=== PATIENT | male | born 1980 | race Caucasian/White ===

== ENCOUNTER → 2022-09-04 09:39 | Outpatient (BNVA) | payer OTHER, SELFPAY | PROVIDERS: PCP Family Medicine; Visit Provider Internal Medicine | DX: M77.12 Lateral epicondylitis, left elbow (principal) | CPT/HCPCS: 99203 ==

== ENCOUNTER → 2022-09-08 11:01 | Outpatient (BNVA) | payer OTHER, SELFPAY | PROVIDERS: PCP Family Medicine; Visit Provider Physician Assistant Medical | DX: M77.12 Lateral epicondylitis, left elbow (principal) | CPT/HCPCS: 99213 ==

== ENCOUNTER → 2022-09-18 13:10 | Outpatient (BNVA) | payer OTHER, SELFPAY | PROVIDERS: PCP Family Medicine; Visit Provider Physician Assistant Medical | DX: M77.12 Lateral epicondylitis, left elbow (principal) | CPT/HCPCS: 99213 ==

== ENCOUNTER → 2022-10-02 09:35 | Outpatient (BNVA) | payer OTHER, SELFPAY | PROVIDERS: PCP Internal Medicine; Visit Provider Physician Assistant Medical | DX: M77.12 Lateral epicondylitis, left elbow (principal) | CPT/HCPCS: 99213 ==

== ENCOUNTER 2022-10-09 09:30 | Outpatient (RCR) | payer OTHER, BC, SELFPAY ==
--- NOTE | 2022-10-09 09:58 | MHC.OT.DC ---
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 Pt demonstrates pain free strength with upper body resistive ex WNL I anticipate pt to return to full duty without difficulty. Pt to follow up with MD at the end of the week Electronically Signed By: Deborah Gonzales OT CHT CLT Reviewed/agree with student documentation: Therapist: Please Sign and return to therapist, thank you for your referral.
== END 2022-10-09 09:59 | disposition home or self-care (01) ==
LOC: HO.OT 09:30
PROVIDERS: PCP Internal Medicine; Visit Provider Physician Assistant Medical
DX: M77.12 Lateral epicondylitis, left elbow (principal)
CPT/HCPCS: 97033; 97110; 97140; 97165

== ENCOUNTER → 2022-10-13 09:57 | Outpatient (BNVA) | payer OTHER, SELFPAY | PROVIDERS: PCP Internal Medicine; Visit Provider Physician Assistant Medical | DX: M77.12 Lateral epicondylitis, left elbow (principal) | CPT/HCPCS: 99213 ==

== ENCOUNTER → 2023-07-23 13:33 | Outpatient (BNVA) | payer OTHER, SELFPAY | PROVIDERS: PCP Internal Medicine; Visit Provider Physician Assistant Medical | DX: S39.012D Strain of muscle, fascia and tendon of lower back, subsequent encounter (principal); X58.XXXD Exposure to other specified factors, subsequent encounter | CPT/HCPCS: 99202 ==

== ENCOUNTER → 2023-08-08 13:53 | Outpatient (BNVA) | payer OTHER, SELFPAY | PROVIDERS: PCP Internal Medicine; Visit Provider Physician Assistant Medical | DX: S39.012D Strain of muscle, fascia and tendon of lower back, subsequent encounter (principal); M54.17 Radiculopathy, lumbosacral region; X58.XXXD Exposure to other specified factors, subsequent encounter | CPT/HCPCS: 99213 ==

== ENCOUNTER → 2023-12-06 09:35 | Outpatient (BNVA) | payer OTHER, SELFPAY | PROVIDERS: PCP Internal Medicine; Visit Provider Physician Assistant Medical | DX: M51.17 Intervertebral disc disorders with radiculopathy, lumbosacral region (principal) | CPT/HCPCS: 99213 ==

== ENCOUNTER → 2023-12-11 11:01 | Outpatient (BNVA) | payer OTHER, SELFPAY | PROVIDERS: PCP Internal Medicine; Visit Provider Physician Assistant Medical | DX: M54.16 Radiculopathy, lumbar region (principal) | CPT/HCPCS: 99213 ==

== ENCOUNTER 2023-12-25 07:52 | Outpatient (REF) | payer OTHER, SELFPAY ==
--- NOTE | ~2023-12-25 | MR_ITS ---
EXAMINATION: MR LUMBAR SPINE WITHOUT CONTRAST CLINICAL INFORMATION: Low back pain radiating into the left lower extremity COMPARISON: None available. TECHNIQUE: MRI of the lumbar spine was obtained using routine sequences without contrast. FINDINGS: Last rib-bearing vertebra labeled T12. No bone marrow STIR signal abnormality. The alignment is normal. The conus medullaris ends at inferior endplate of L1 with normal signal. Spina bifida occulta, S1. Syndesmophyte formation both sacroiliac joints. T12-L1: No compression upon neural elements. L1-2: Based disc bulging. No compression upon neural elements. L2-3: Broad-based disc bulging. Facet joint hypertrophy as well as ligamentum flavum. Reduced AP diameter of the thecal sac and bilateral neuroforamina narrowing. L3-4: Broad-based disc bulging. Facet joint and ligamentum flavum hypertrophy, bilaterally. Reduced AP diameter of the thecal sac and bilateral neuroforamina narrowing. L4-5: Broad-based disc bulging. Facet joint and ligamentum flavum hypertrophy. Reduced AP diameter of the thecal sac. Bilateral neuroforamina narrowing. L5-S1: No based disc bulging. Facet joint hypertrophy. Reduced AP diameter of the thecal sac. Bilateral neuroforamina narrowing. No prevertebral compartment hematoma, mass or fluid collection. MR/MR lumbar spine wo con IMPRESSION: Multilevel spondylosis from L3-4, to L5-S1 likely encroaching the exiting nerve roots. Electronically signed by: Kashif Zapata MD 01/14/2024 03:33 PM [facility]
== END 2023-12-25 07:53 | disposition home or self-care (01) ==
LOC: HO.MRI 07:52
PROVIDERS: PCP Internal Medicine; Visit Provider Internal Medicine
DX: M54.42 Lumbago with sciatica, left side (principal)
CPT/HCPCS: 72148

== ENCOUNTER → 2023-12-25 08:04 | Outpatient (BNV) | payer OTHER, SELFPAY | PROVIDERS: PCP Internal Medicine; Visit Provider Radiology Diagnostic Radiology | DX: M54.50 Low back pain, unspecified (principal) | CPT/HCPCS: 72148 ==

== ENCOUNTER → 2024-01-02 10:59 | Outpatient (BNVA) | payer OTHER, SELFPAY | PROVIDERS: PCP Internal Medicine; Visit Provider Physician Assistant | DX: S39.012D Strain of muscle, fascia and tendon of lower back, subsequent encounter (principal); X58.XXXD Exposure to other specified factors, subsequent encounter | CPT/HCPCS: 99213 ==

== ENCOUNTER → 2024-01-16 11:21 | Outpatient (BNVA) | payer OTHER, SELFPAY | PROVIDERS: PCP Internal Medicine; Visit Provider Physician Assistant Medical | DX: M47.26 Other spondylosis with radiculopathy, lumbar region (principal) | CPT/HCPCS: 99213 ==

== ENCOUNTER 2024-01-30 10:49 | Outpatient (AMB) | payer OTHER, SELFPAY ==
[2024-01-30 11:24] VITALS: BP 134/85; PULSE 77; O2SAT 96
--- NOTE | 2024-01-30 11:24 | A.OFFVIS_ITS ---
Vital Signs 01/30/24 11:24 Weight 275 lb BP 134/85 Blood Pressure Location Lt brachial Position Sitting Pulse 77 Pulse Source Pulse Oximeter Pulse Oximetry (%) 96 Oxygen Delivery Method Room Air Intake Visit Reasons: Low back pain radiating to L Leg HPI Comments Details: Kyle is a very pleasant 43-year-old male who presents to the office today for evaluation and management of his chronic lower back pain Patient has been suffering with this pain for 7 months, he was referred here by work connections. Recent MRI reviewed, results as per below Patient states this pain started 06/30/2023, after he was out doing a lot of work in the [employer] for his job. Endorses midline lower back pain with radiation down left leg to the foot. States when the pain 1st started it was very severe. Since then it has been more manageable. He also reports occasional radiation on the right into the upper buttocks but not down the leg. Pain is intermittent, worse with sitting, standing and if he is in pain walking will exacerbate it. Pain is also exacerbated by activities that require slight forward flexion He does endorse some numbness, tingling and weakness of the left lower extremity. Denies red flag symptoms including new loss of bowel, bladder or saddle anesthesia Pain today is rated as a 4/10 Completed physical therapy a couple months ago with minimal improvement Denies history of chiropractor, acupuncture, massage or previous attempts at injections Patient has been taking Tylenol and Motrin as needed with some improvement. In the past he has also tried muscle relaxers with some improvement. In terms of muscle damage condition is described as spasming, stabbing, sharp, shooting, dull, cramping, squeezing, throbbing, tingling, pins and needles Pain is negatively impacting patient's enjoyment of life, general activity, mood, sleep, walking Denies implantable devices, pacemaker or defibrillator Denies current use of anticoagulants Denies current use of nicotine, tobacco, alcohol or illicit substances Review of Systems Const All systems reviewed & are unremarkable except as noted in HPI and below Physical Exam Vital Signs: Last Vital Signs Pulse 77 01/30/24 11:24 BP 134/85 01/30/24 11:24 Pulse Ox 96 01/30/24 11:24 Oxygen Delivery Method Room Air 01/30/24 11:24 General: awake, alert, oriented. Answers questions appropriately. Fully engaged in examination. Skin: warm, dry, intact HEENT: Normocephalic. Hearing intact. Cardiac: External chest normal in appearance. Respiratory: No cough, audible wheezing or stridor. Abdomen: without gross distension. MS: No obvious swelling or deformities. Able to stand on bilateral tiptoes and bilateral heels.? Able to transition from sit to stand unassisted. Ambulates with bilaterally normal heel strike and toe off SLR negative bilaterally Valsalva negative Nontender over bilateral PSIS Tenderness over midline lumbar vertebrae and lumbar paraspinal muscles. Lumbar range of motion, pain increase with forward flexion Bilateral lower extremity strength 5/5 Neurological: Oriented to person, place, time and situation. Thought process intact. No gait abnormalities appreciated. Psychiatric: Appropriate mood and affect. Good judgment and insight. Results Reviewed Results Reviewed: 12/25/23 MR/MR lumbar spine wo con FINDINGS: Last rib-bearing vertebra labeled T12. No bone marrow STIR signal abnormality. The alignment is normal. The conus medullaris ends at inferior endplate of L1 with normal signal. Spina bifida occulta, S1. Syndesmophyte formation both sacroiliac joints. T12-L1: No compression upon neural elements. L1-2: Based disc bulging. No compression upon neural elements. L2-3: Broad-based disc bulging. Facet joint hypertrophy as well as ligamentum flavum. Reduced AP diameter of the thecal sac and bilateral neuroforamina narrowing. L3-4: Broad-based disc bulging. Facet joint and ligamentum flavum hypertrophy, bilaterally. Reduced AP diameter of the thecal sac and bilateral neuroforamina narrowing. L4-5: Broad-based disc bulging. Facet joint and ligamentum flavum hypertrophy. Reduced AP diameter of the thecal sac. Bilateral neuroforamina narrowing. L5-S1: No based disc bulging. Facet joint hypertrophy. Reduced AP diameter of the thecal sac. Bilateral neuroforamina narrowing. No prevertebral compartment hematoma, mass or fluid collection. IMPRESSION: Multilevel spondylosis from L3-4, to L5-S1 likely encroaching the exiting nerve roots. Assessment & Plan Assessment & Plan (1) Bilateral leg paresthesia: Code(s): R20.2 - Paresthesia of skin Category: Medical (2) Lumbar radiculopathy: Code(s): M54.16 - Radiculopathy, lumbar region Category: Medical (3) Lumbar spondylosis: Code(s): M47.816 - Spondylosis without myelopathy or radiculopathy, lumbar region Category: Medical Plan Patient presented to the office today for evaluation management of his chronic lower back pain History, physical exam and provocative testing consistent with lumbar spondylosis and lumbar radiculopathy EMG ordered for evaluation Patient has exhausted conservative therapy including PT, home exercise program, ghzz-xkh-wjwepen medications, nonsteroidal anti-inflammatory medications, muscle relaxers all without improvement of his symptoms. Discussed options for treatment including diagnostic injections, epidural steroid injections, peripheral nerve stimulator and more permanent neuromodul ation. Pending EMG will plan for transforaminal epidural steroid injection versus diagnostic medial branch blocks. Cyclobenzaprine 10 mg p.o. q.h.s. as needed. Patient advised on cautions for use All questions and concerns were answered, patient agrees with the plan. Follow up after EMG, sooner if needed Orders: Orders NE electromyogram (EMG) Today R20.2 - Paresthesia of skin Medications: Refilled cyclobenzaprine 10 mg PO BEDTIME PRN 30 tabs 1RF muscle spasm Coding Level of Care Code New Pt Level 4 (51519) Complex EM visit Add On G2211 Diagnoses Bilateral leg paresthesia R20.2 Lumbar radiculopathy M54.16 Lumbar spondylosis M47.816
== END 2024-01-30 11:58 | disposition home or self-care (01) ==
PROVIDERS: PCP Internal Medicine; Visit Provider Registered Nurse Emergency
DX: R20.2 Paresthesia of skin (principal); M54.16 Radiculopathy, lumbar region; M47.816 Spondylosis without myelopathy or radiculopathy, lumbar region
CPT/HCPCS: 99204; G2211

== ENCOUNTER → 2024-01-30 10:49 | Outpatient (BNVA) | payer OTHER, SELFPAY | PROVIDERS: PCP Internal Medicine; Visit Provider Registered Nurse Emergency | DX: M47.26 Other spondylosis with radiculopathy, lumbar region (principal); R20.2 Paresthesia of skin | CPT/HCPCS: 99202 ==

== ENCOUNTER → 2024-02-13 14:51 | Outpatient (BNVA) | payer OTHER, SELFPAY | PROVIDERS: PCP Internal Medicine; Visit Provider Physician Assistant Medical | DX: M47.26 Other spondylosis with radiculopathy, lumbar region (principal) | CPT/HCPCS: 99213 ==

== ENCOUNTER 2024-04-02 10:10 | Outpatient (REF) | payer OTHER, SELFPAY ==
--- NOTE | 2024-04-02 10:14 | EMG_ITS ---
Chief complaint: Chronic back pain, could radiate on both sides. Denies feet numbness. Reason for referral: Evaluate for radiculopathy Referred by: Skyla Wellington NP Procedure done: Bilateral lower extremity NCS/EMG Precautions and/or limitations: None The limb temperature was monitored continuously and remained between 32-36 degrees C during the performance of the NCS. Nerve Conduction Studies Anti Sensory Summary Table ?Stim Site NR Onset (ms) Norm Onset (ms) Peak (ms) Norm Peak (ms) O-P Amp (?V) Norm O-P Amp Site1 Site2 Delta-0 (ms) Dist (cm) Nacho (m/s) Norm Nacho (m/s) Left Sural Anti Sensory (Lat Mall) Calf ? 2.2 2.9 <4.0 5.7 >5.0 Calf Lat Mall 2.2 14.0 64 Right Sural Anti Sensory (Lat Mall) Calf ? 1.1 3.8 <4.0 7.5 >5.0 Calf Lat Mall 1.1 14.0 127 Motor Summary Table ?Stim Site NR Onset (ms) Norm Onset (ms) O-P Amp (mV) Norm O-P Amp iAmp (mV) Amp (1st) (%) Site1 Site2 Delta-0 (ms) Dist (cm) Nacho (m/s) Norm Nacho (m/s) Left Peroneal Motor (Ext Dig Brev) Ankle ? 5.1 <4.0 2.1 >2.5 2.3 100.0 Ankle Ext Dig Brev 5.1 0.0 B Fib ? 12.6 3.1 3.4 147.6 B Fib Ankle 7.5 34.5 46 >40 Poplt ? 13.2 3.1 3.4 147.6 Poplt B Fib 0.6 5.0 83 >40 Right Peroneal Motor (Ext Dig Brev) Ankle ? 4.3 <4.0 5.5 >2.5 6.6 100.0 Ankle Ext Dig Brev 4.3 0.0 B Fib ? 12.3 3.9 4.4 70.9 B Fib Ankle 8.0 39.0 49 >40 Poplt ? 13.1 3.9 4.4 70.9 Poplt B Fib 0.8 5.0 63 >40 Left Tibial Motor (Abd Mercado Brev) Ankle ? 4.1 <5 8.5 >2.5 10.1 100.0 Ankle Abd Mercado Brev 4.1 0.0 Knee ? 14.5 4.1 4.6 48.2 Knee Ankle 10.4 43.0 41 >40 EMG ?Side Muscle Nerve Root Ins Act Fibs Psw Amp Dur Poly Recrt Int Pat Comment Right AbdHallucis MedPlantar S1-2 Nml Nml Nml Nml Nml 0 Nml Complete Right AntTibialis Dp Br Peron L4-5 Nml Nml Nml Nml Nml 0 Nml Complete Right PostTibialis Tibial L5, S1 Nml Nml Nml Nml Nml 0 Nml Complete Right MedGastroc Tibial S1-2 Nml Nml Nml Nml Nml 0 Nml Complete Right VastusMed Femoral L2-4 Nml Nml Nml Nml Nml 0 Nml Complete Left AbdHallucis MedPlantar S1-2 Nml Nml Nml Nml Nml 0 Nml Complete Left AntTibialis Dp Br Peron L4-5 Nml Nml Nml Nml Nml 0 Nml Complete Left PostTibialis Tibial L5, S1 Nml Nml Nml Nml Nml 0 Nml Complete Left MedGastroc Tibial S1-2 Nml Nml Nml Nml Nml 0 Nml Complete Left VastusMed Femoral L2-4 Nml Nml Nml Nml Nml 0 Nml Complete Paraspinal EMG ?Side Muscle Nerve Root Ins Act Fibs Psw Comment Right Lumbar Upper Rami Nml Nml Nml Right Lumbar Mid Rami Incr 1+ 1+ Right Lumbar Lower Rami Incr 1+ 1+ Left Lumbar Upper Rami Nml Nml Nml Left Lumbar Mid Rami Nml Nml Nml Left Lumbar Lower Rami Incr 1+ 1+ FINDINGS: Right peroneal nerve showed very small amplitude/almost absent, with prolonged distal latency. No conduction block across fibular neck. Noted very flat EDB muscle. Right peroneal nerve showed prolonged distal latency, normal amplitude and normal conduction velocity. No conduction block across fibular neck. All other nerves tested were within normal. Concentric needle EMG was performed in selected muscles of the bilateral lower extremity and lumbar paraspinals. Study revealed signs of electric abnormalities as shown in the table above. No denervation seen on muscles tested in lower extremities. Increased insertional activity, PSWs and fibrillations seen on right mid-low and left low lumbar paraspinals. IMPRESSION: 1. This is an abnormal study. 2. There is electrodiagnostic evidence for bilateral lumbar radiculopathy, mid- low, affecting L5 nerve roots. 3. There is no electrodiagnostic evidence for focal peroneal neuropathy, tibial neuropathy. lumbosacral plexopathy, or peripheral neuropathy. Thank you for your kind referral. Susan Ramirez MD, DAVID Board Certified, [place] Board of [employer] and Rehabilitation (ABPMR) Board Certified, [place] Board of Electrodiagnostic Medicine (ABEM) CODIN 91822 x 2 MTDD
--- OUTSIDE RECORDS SUMMARY | 2024-04-02 11:09 | XMS_ITS | Data Portability ---
Author Organization [place] - [facility], Allergy Address [address] [address] Care Team Providers Care Payroll Lead Name Role Phone AVERY CLARK Primary Care Provider AVERY CLARK Referring Provider Assessment Encounter Date Assessment Date Assessment LastModified by Organization Details LastModified Time 09/21/2023 09/21/2023 43-year-old male evaluated via telehealth today. Patient is using and benefiting from his CPAP machine. Continue use and follow-up as needed. [email or web address] Not available 09/21/2023 13:35:22 Plan of Treatment Reminders Order Date Submit Date Provider Last Modified By Organization Details Last Modified Time Details Appointments None record ed. Lab None record ed. Referral None record ed. Procedures None record ed. Surgeries None record ed. Imaging None record ed. Medication Orders None record ed. Patient TargetsNo targets recorded. Patient InstructionsNo instructions recorded. Reason for Referral None Reported. Results Created Date Observation Date Name Description Value Unit Range Abnormal Flag Note LastModifiedBy Organization Detail LastModifiedTime 10/04/1909/18/2023 CPAP compl iance * No observ ation record ed. [email or web address] Not Available 09/10 12:16:08 10/30/19 24 01/14/2021 imagi ng/di agnos tic resul t No observ ation record ed. [email or web address] Not Available 21:53:33 10/30/19 24 02/27/2020 imagi ng/di agnos tic resul t No observ ation record ed. [email or web address] Not Available 21:53:56 Result Notes None recorded. Problems Name Problem SNOMED Code Status Onset Date Resolution Date Notes Provider Name and Address Organization Details Recorded Time Disorder of nasal sinus 2231461 Active 2018 Unspecif ied disorder of nose and nasal sinuses; Note: Date Diagnose d: 9 4:44 PM (J34.9) Not Available [facility] 4 02:27:55 Disorder of the nose 67062906 Active 2018 Unspecif ied disorder of nose and nasal sinuses; Note: Date Diagnose d: 9 4:44 PM (J34.9) Not Available [facility] 4 02:27:55 Obstruct loretta sleep apnea syndrome 50017676 Active 2015 Obstruct loretta sleep apnea (adult) (pediatr ic); Note: Date Diagnose d: 6 3:47 PM (G47.33) Not Available [facility] 4 02:27:58 Deviated nasal septum 985599385 Active 2017 Deviated nasal septum; Note: Date Diagnose d: 02/22/20 14 10:04 AM (470) ; Start Date : 02/22/20 14 Devia thomas nasal septum; Note: Date Diagnose d: 02/27/20 18 3:44 PM (J34.2) Not Available [facility] 4 02:27:47 Hypertro phy of tonsils 46574435 Active 2015 Hypertro phy of tonsils; Note: Date Diagnose d: 05/18/2015 3:51 PM (J35.1) Not Available [facility] 4 02:27:44 Allergic rhinitis caused by pollen 39198098 Active 2015 Allergic rhinitis due to pollen; Note: Date Diagnose d: 05/18/2015 3:48 PM (J30.1) Not Available [facility] 4 02:28:06 Cellulit is of right upper limb [id number] 508645 Active 2020 Cellulit is of right upper limb; Note: Date Diagnose d: 1 8:48 AM (L03.113 ) Not Available [facility] 4 02:28:05 Chronic rhinitis 34236177 Active 2013 Rhinitis , chronic; Note: Date Diagnose d: 02/22/20 14 10:04 AM (472.0) Not Available [facility] 4 02:27:47 Snoring 07016305 Completed 201510/12/2023 Snoring; Note: Date Diagnose d: 05/18/2015 3:53 PM (R06.83) Not Available [facility] 4 02:27:41 Hypertro phy of nasal turbinat es 28891437 Active 2017 Hypertro phy of nasal turbinat es; Note: Date Diagnose d: 02/27/20 18 3:44 PM (J34.3) Not Available [facility] 4 02:27:57 Allergic rhinitis 91264379 Active 2014 Allergic Rhinitis ; Note: Date Diagnose d: 5 3:36 PM (477.9) ; Start Date : 06/06/19 15 Aller gic rhinitis : Due to other allergen ; Note: Date Diagnose d: 5 4:01 PM (477.8) ; Start Date : 03/27/19 15 Peren nial allergic rhinitis ; Note: Date Diagnose d: 5 10:14 AM (J30.89) [mapped from ICD9 code: 477.8] Not Available [facility] 4 02:28:05 Problem Notes None recorded. Procedures Surgical History None recorded. Imaging Results Imaging Date Name Status LastModified by Organiz ation Details LastModified Time 09/18/2023 CPAP compliance* completed [email or web address] Information not available 10/04/2023 12:16:08 01/14/2021 imaging/diag nostic result completed Information not available 10/30/2023 21:53:33 02/27/2020 imaging/diag nostic result completed Information not available 10/30/2023 21:53:56 Procedure Notes None recorded. Medical Equipment None Reported. Medications Name Sig Start Date Stop Date Status Note LastModified by Organization Details LastModified Time Prescript ion - Prior Authoriza tion Request active Script Copy/An or Auth^Scr ipt Copy/An or Auth_201 [id number] Not Available Not Available Not Available cyclobenz aprine 10 mg tablet TAKE 1 TABLET ORALLY AT BEDTIME NEEDED FOR MUSCLE SPASM active Not Available Not Available No t Available doxycycli ne hyclate 100 mg capsule 02/12 completed Medicati on ID: [id number] B rand Name: doxycycl ine hyclate Send Method: E-Prescr ibed Sub s Allowed: subs [place] Medic ationGen ericName : doxycycl ine hyclate Not Available Not Available Not Available benzonata te 200 mg capsule TAKE 1 CAPSULE BY MOUTH THREE TIMES A DAY NEEDED FOR COUGH active Not Available Not Available No t Available amlodipin e 5 mg tablet 2017 active Medicati on ID: [id number] D uration Value: 30 Brand Name: amlodipi ne Send Method: E-Prescr ibed Sub s Allowed: subs [place] Medic ationGen ericName : amlodipi ne Not Available Not Available Not Available amlodipin e 10 mg tablet TAKE 1 TABLET BY MOUTH EVERY DAY active Not Available Not Available No t Available prednison e 50 mg tablet 02/12 completed Medicati on ID: [id number] B rand Name: predniso ne Send Method: E-Prescr ibed Sub s Allowed: subs [place] Speci al Instruct ion: TAKE 1 TABLET BY MOUTH EVERY DAY FOR 5 DAYS Med icationG enericNa me: predniso ne Not Available Not Available Not Available allopurin ol 300 mg tablet TAKE 1 TABLET BY MOUTH EVERY DAY active Not Available Not Available No t Available azelastin e 137 mcg (0.1 %) nasal spray 2019 active Medicati on ID: [id number] D uration Value: 30 Prescri bed By Name: Juventino Bowden nd Name: azelasti ne Send Method: E-Prescr ibed Sub s Allowed: subs [place] Speci al Instruct ion: 1 spray into each nostril BID Medi cationGe nericNam e: azelasti ne Not Available Not Available Not Available methylpre dnisolone 4 mg tablets in a dose pack TAKE DIRECTED PER INSTRCUT ION ON PACKAGE LABELING active Not Available Not Available No t Available ipratropi um bromide 21 mcg (0.03 %) nasal spray 09/25 completed Medicati on ID: [id number] D uration Value: 25 Brand Name: ipratrop ium bromide Send Method: E-Prescr ibed Sub s Allowed: subs [place] Medic ationGen ericName : ipratrop ium bromide Not Available Not Available Not Available loratadin e 10 mg tablet 02/12 completed Medicati on ID: [id number] B rand Name: loratadi ne Send Method: E-Prescr ibed Sub s Allowed: subs [place] Speci al Instruct ion: TAKE 1 TABLET BY MOUTH EVERY MORNING NEEDED. Medicati onGeneri cName: loratadi ne Not Available Not Available Not Available amoxicill in 875 mg-potass ium clavulana te 125 mg tablet TAKE 1 TABLET BY MOUTH TWICE A DAY active Not Available Not Available No t Available diclofena c 1 % topical gel APPLY 2-3 GRAMS TO AFFECTED AREA NEEDED FOR PAIN active Not Available Not Available No t Available EpiPen 2-Fernandez 0.3 mg/0.3 mL injection , auto-inje ctor Inject 1 pen injector intramus cularly single dose as needed 04/11 completed Medicati on ID: [id number] Du ration Value: 1 Prescri bed By Name: Juventino Paul nd Name: EpiPen 2-Fernandez Se nd Method: E-Prescr ibed Sub s Allowed: subs [place] Medic ationGen ericName : EpiPen 2-Fernandez Not Available Not Available Not Available Flonase Allergy Relief 50 mcg/actua tion nasal spray,joe pension 2 spray into both nostrils 2018 active Medicati on ID: [id number] D uration Value: 30 Prescri bed By Name: KAYDEN Willard nd Name: Flonase Allergy Relief S end Method: E-Prescr ibed Sub s Allowed: subs [place] Medic ationGen ericName : Flonase Allergy Relief Not Available Not Available Not Available Vitals None Recorded Social History None recorded. Functional Status None recorded. Mental Status None recorded. Family History Nothing Reported. Medical History No medical history recorded. Past Encounters Encounter ID Performer Location Encounter Start Date Encounter Closed Date Diagnosis/Indication Diagnosis SNOMED-CT Code Diagnosis ICD10 Code Diagnosis Note [id number] MEAGHAN CHILDERS MD [facility] [address] [place] [address] 09/21/2023 13:33:31 09/21/2023 13:49:21 Obstructive sleep apnea syndrome 24046330 G47.33 Health Concerns Section Related Observation LastModified by Organization Detai ls LastModified Time None Recorded Concern Status LastModified by Organization Details LastModified Time None Recorded Advance Directives Directive None Recorded Payers Encounter Date Sequence Insurance Name Policy Number Policy [employer] Covered Member ID [employer] Member ID Guarantor Name 09/21/2023 1 [facility] [facility] [place] [place] [facility] [place] [id number] Kyle Campbell [id number] Kyle Campbell Notes Date Note Type Note Provider Name and Address Organization Details Recorded Time 09/21/2023 text/html 43-year-old male evaluated via telehealth today. He has a CPAP machine that needs to be updated. He uses his CPAP every day and finds it is extremely beneficial. MEAGHAN HAYS MD [address] [address], [place], [address], [facility] - [facility] 09/21/2023 14:52:28
== END 2024-04-02 10:11 | disposition home or self-care (01) ==
LOC: HO.NEURO 10:10
PROVIDERS: PCP Internal Medicine; Visit Provider Registered Nurse Emergency
DX: R20.2 Paresthesia of skin (principal)
CPT/HCPCS: 95886; 95909

== ENCOUNTER → 2024-04-02 10:14 | Outpatient (BNV) | payer OTHER, SELFPAY | PROVIDERS: PCP Internal Medicine; Visit Provider Physical Medicine & Rehabilitation | DX: M54.16 Radiculopathy, lumbar region (principal) | CPT/HCPCS: 95886; 95909 ==

== ENCOUNTER → 2024-04-09 10:50 | Outpatient (BNVA) | payer OTHER, SELFPAY | PROVIDERS: PCP Internal Medicine; Visit Provider Physician Assistant Medical | DX: M54.17 Radiculopathy, lumbosacral region (principal) | CPT/HCPCS: 99213 ==

== ENCOUNTER 2024-04-11 11:00 | Outpatient (AMB) | payer OTHER, SELFPAY ==
[2024-04-11 11:37] VITALS: BP 171/100; BP 171/98; PULSE 100; BMI 38.5
--- NOTE | 2024-04-11 11:37 | A.OFFVIS_ITS ---
Vital Signs 04/11/24 11:37 04/11/24 11:37 Height 6 ft 1 in Weight 292 lb 2 oz BMI 38.5 BP 171/100 H 171/98 H Blood Pressure Location Rt brachial Lt brachial Position Sitting Sitting Pulse 100 Pulse Source Pulse Oximeter Intake Visit Reasons: Follow up EMG results Allergies No Known Allergies Allergy (Verified 04/11/24 11:47) HPI Comments Details: Patient presents back to the office today for follow-up, review of recent EMG EMG reviewed, results as per below Continues with lower back pain with radiation down the left lower extremity to the foot. He reports intermittent radiation down the right lower extremity. Pain today is 1/10. He states some days pain is worse than others. He continues with Tylenol and Motrin as needed. He has muscle relaxers to take when the pain is severe. Denies red flag symptoms including new loss of bowel, bladder or saddle anesthesia Intake note: Kyle is a very pleasant 43-year-old male who presents to the office today for evaluation and management of his chronic lower back pain Patient has been suffering with this pain for 7 months, he was referred here by work connections. Recent MRI reviewed, results as per below Patient states this pain started 06/30/2023, after he was out doing a lot of work in the [employer] for his job. Endorses midline lower back pain with radiation down left leg to the foot. S tates when the pain 1st started it was very severe. Since then it has been more manageable. He also reports occasional radiation on the right into the upper buttocks but not down the leg. Pain is intermittent, worse with sitting, standing and if he is in pain walking will exacerbate it. Pain is also exacerbated by activities that require slight forward flexion He does endorse some numbness, tingling and weakness of the left lower extremity. Denies red flag symptoms including new loss of bowel, bladder or saddle anesthesia Pain today is rated as a 4/10 Completed physical therapy a couple months ago with minimal improvement Denies history of chiropractor, acupuncture, massage or previous attempts at injections Patient has been taking Tylenol and Motrin as needed with some improvement. In the past he has also tried muscle relaxers with some improvement. In terms of muscle damage condition is described as spasming, stabbing, sharp, shooting, dull, cramping, squeezing, throbbing, tingling, pins and needles Pain is negatively impacting patient's enjoyment of life, general activity, mood, sleep, walking Denies implantable devices, pacemaker or defibrillator Denies current use of anticoagulants Denies current use of nicotine, tobacco, alcohol or illicit substances Review of Systems Const All systems reviewed & are unremarkable except as noted in HPI and below Physical Exam Vital Signs: Last Vital Signs Pulse 100 04/11/24 11:37 BP 171/98 H 04/11/24 11:37 BMI result Body Mass Index 38.5 General: awake, alert, oriented. Answers questions appropriately. Fully engaged in examination. Skin: warm, dry, intact HEENT: Normocephalic. Hearing intact. Cardiac: External chest normal in appearance. Respiratory: No cough, audible wheezing or stridor. Abdomen: without gross distension. MS: No obvious swelling or deformities. Able to stand on bilateral tiptoes and bilateral heels.? Able to transition from sit to stand unassisted. Neurological: Oriented to person, place, time and situation. Thought process intact. No gait abnormalities appreciated. Psychiatric: Appropriate mood and affect. Good judgment and insight. Results Reviewed Results Reviewed: 04/02/24 EMG IMPRESSION: 1. This is an abnormal study. 2. There is electrodiagnostic evidence for bilateral lumbar radiculopathy, mid- low, affecting L5 nerve roots. 3. There is no electrodiagnostic evidence for focal peroneal neuropathy, tibial neuropathy. lumbosacral plexopathy, or peripheral neuropathy. 12/25/23 MR/MR lumbar spine wo con FINDINGS: Last rib-bearing vertebra labeled T12. No bone marrow STIR signal abnormality. The alignment is normal. The conus medullaris ends at inferior endplate of L1 with normal signal. Spina bifida occulta, S1. Syndesmophyte formation both sacroiliac joints. T12-L1: No compression upon neural elements. L1-2: Based disc bulging. No compression upon neural elements. L2-3: Broad-based disc bulging. Facet joint hypertrophy as well as ligamentum flavum. Reduced AP diameter of the thecal sac and bilateral neuroforamina narrowing. L3-4: Broad-based disc bulging. Facet joint and ligamentum flavum hypertrophy, bilaterally. Reduced AP diameter of the thecal sac and bilateral neuroforamina narrowing. L4-5: Broad-based disc bulging. Facet joint and ligamentum flavum hypertrophy. Reduced AP diameter of the thecal sac. Bilateral neuroforamina narrowing. L5-S1: No based disc bulging. Facet joint hypertrophy. Reduced AP diameter of the thecal sac. Bilateral neuroforamina narrowing. No prevertebral compartment hematoma, mass or fluid collection. IMPRESSION: Multilevel spondylosis from L3-4, to L5-S1 likely encroaching the exiting nerve roots. Assessment & Plan Assessment & Plan (1) Bilateral leg paresthesia: Code(s): R20.2 - Paresthesia of skin Category: Medical (2) Lumbar radiculopathy: Code(s): M54.16 - Radiculopathy, lumbar region Category: Medical (3) Lumbar spondylosis: Code(s): M47.816 - Spondylosis without myelopathy or radiculopathy, lumbar region Category: Medical Plan Patient presented to the office today for follow-up, review of recent EMG EMG reviewed, results as per above Patient has exhausted conservative therapy including PT, home exercise program, [id number] medications, nonsteroidal anti-inflammatory medications, muscle relaxers all without improvement of his symptoms. Discussed options for treatment including diagnostic injections, epidural steroid injections, peripheral nerve stimulator and more permanent neuromodulation. Will schedule for bilateral L4-5 transforaminal epidural steroid injection with local anesthetic Continue with Cyclobenzaprine 10 mg p.o. q.h.s. as needed. Patient advised on cautions for use All questions and concerns were answered, patient agrees with the plan. Follow up after injection, sooner if needed Coding Level of Care Code New Pt Level 4 (57167) Complex EM visit Add On G2211 Diagnoses Bilateral leg paresthesia R20.2 Lumbar radiculopathy M54.16 Lumbar spondylosis M47.816
--- OUTSIDE RECORDS SUMMARY | 2024-04-11 11:47 | XMS_ITS | Clinical Summary ---
Author Organization [facility] Address [address] [place] [address] Care Team Providers Care Classification Officer Name Role Phone Pcp, No Primary Care Provider Unavailabl e Allergies No known active allergies Medications Medication Sig Dispensed Refills Start Date End Date Status benzonatate (TESSALON) 200 MG capsuleIndications:A cute cough Take 1 capsule (200 mg total) by mouth 3 (three) times a day as needed for cough. 45 capsule 05/04/2023 Active Active Problems No known active problems Social History Tobacco Use Types Packs/Day Years Used Date Smoking Tobacco: Never Assessed Sex and Gender Information Value Date Recorded Sex Assigned at Not on file Gender Identity Not on file Sexual Orientation Not on file Last Filed Vital Signs Vital Sign Reading Time Taken Comments Blood Pressure 142/90 05/04/2023 1:55 PM EST Pulse 79 05/04/2023 1:55 PM EST Temperature 36.8 ??C (98.3 ??F) 05/04/2023 1:55 PM ES T Respiratory Rate - - Oxygen Saturation 97% 05/04/2023 1:55 PM EST Inhaled Oxygen Concentration - - Weight 125 kg (275 lb) 05/04/2023 1:55 PM EST Height 185.4 cm (6' 1 ) 05/04/2023 1:55 PM EST Body Mass Index 36.28 05/04/2023 1:55 PM EST Plan of Treatment Health Maintenance Due Date Last Done Comments Hepatitis C Virus Screening 1979 HIV Screening 1992 DTaP/Tdap/Td Vaccines (1 - Tdap) 1998 Hepatitis B Vaccines (1 of 3 - 19+ 3-dose series) 1998 Influenza Vaccine 10/11/2023 COVID-19 Vaccine ( - 2023-2 5 season) 2023 03/17/2021, 07/08/2020, 06/17/2020 Colonoscopy 2024 HPV Vaccines Aged Out No longer eligi ble based on patient's age to complete this topic Pneumococcal Vaccine: Pediatric (0-5 Years) and At-Risk Patients (6 to 49 Years) Aged Out No longer eligible b ased on patient's age to complete this topic Care Teams Classification Officer Relationship Specialty Start Date End Date Pcp, No PCP - General General Medicine 04/10/23
--- OUTSIDE RECORDS SUMMARY | 2024-04-11 11:47 | XMS_ITS | Data Portability ---
Author Organization [place] - [facility], Allergy Address [address] [address] Care Team Providers [employer] Artistic Director Name Role Phone AVERY CLARK Primary Care Provider [phone] AVERY CLARK Referring Provider Assessment Encounter Date Assessment Date Assessment LastModified by Organization Details LastModified Time 09/21/2023 09/21/2023 43-year-old male evaluated via telehealth today. Patient is using and benefiting from his CPAP machine. Continue use and follow-up as needed. [email or web address] Not available 09/21/2023 13:35:22 Plan of Treatment [...] Details Recorded Time Disorder of nasal sinus 2154752 Active 2018 Unspecif ied disorder of nose and nasal sinuses; Note: Date Diagnose d: 9 4:44 PM (J34.9) Not Available [facility] 4 02:27:55 Disorder of the nose 20441780 Active 2018 Unspecif ied disorder of nose and nasal sinuses; Note: Date Diagnose d: 9 4:44 PM (J34.9) Not Available [facility] 4 02:27:55 Obstruct loretta sleep apnea syndrome 53082858 Active 2015 Obstruct loretta sleep apnea (adult) (pediatr ic); Note: Date Diagnose d: 6 3:47 PM (G47.33) Not Available [facility] 4 02:27:58 Deviated nasal septum 933451769 Active 2017 Deviated nasal septum; Note: Date Diagnose d: 02/22/20 14 10:04 AM (470) ; Start Date : 02/22/20 14 Devia thomas nasal septum; Note: Date Diagnose d: 02/27/20 18 3:44 PM (J34.2) Not Available [facility] 4 02:27:47 Hypertro phy of tonsils 78424207 Active 2015 Hypertro phy of tonsils; Note: Date Diagnose d: 05/18/2015 3:51 PM (J35.1) Not Available [facility] 4 02:27:44 Allergic rhinitis caused by pollen 11665320 Active 2015 Allergic rhinitis due to pollen; Note: Date Diagnose d: 05/18/2015 3:48 PM (J30.1) Not Available [facility] 4 02:28:06 Cellulit is of right upper limb [id number] 420643 Active 2020 Cellulit is of right upper limb; Note: Date Diagnose d: 1 8:48 AM (L03.113 ) Not Available [facility] 4 02:28:05 Chronic rhinitis 76971828 Active 2013 Rhinitis , chronic; Note: Date Diagnose d: 02/22/20 14 10:04 AM (472.0) Not Available [facility] 4 02:27:47 Snoring 17461820 Completed 201510/12/2023 Snoring; Note: Date Diagnose d: 05/18/2015 3:53 PM (R06.83) Not Available [facility] 4 02:27:41 Hypertro phy of nasal turbinat es 40758865 Active 2017 Hypertro phy of nasal turbinat es; Note: Date Diagnose d: 02/27/20 18 3:44 PM (J34.3) Not Available [facility] 4 02:27:57 Allergic rhinitis 86016546 Active 2014 Allergic Rhinitis ; Note: Date Diagnose d: 5 3:36 PM (477.9) ; Start Date : 06/06/19 15 Aller gic rhinitis : Due to other allergen ; Note: Date Diagnose d: 5 4:01 PM (477.8) ; Start Date : 03/27/19 15 Peren nial allergic rhinitis ; Note: Date Diagnose d: 5 10:14 AM (J30.89) [mapped from ICD9 code: 477.8] Not Available [facility] 4 02:28:05 Problem Notes None recorded. Procedures [...] Copy/An or Auth^Scr ipt Copy/An or [id number] [id number] Not Available Not Available Not Available cyclobenz aprine 10 mg tablet TAKE 1 TABLET ORALLY AT BEDTIME NEEDED FOR MUSCLE SPASM active Not Available Not Available No t Available doxycycli ne hyclate 100 mg capsule 02/12 completed Medicati on ID: [id number] B rand Name: doxycycl ine hyclate Send Method: E-Prescr ibed Sub s Allowed: subs OK Medic ationGen ericName : doxycycl ine hyclate Not Available Not Available Not Available benzonata te 200 mg capsule TAKE 1 CAPSULE BY MOUTH THREE TIMES A DAY NEEDED FOR COUGH active Not Available Not Available No t Available amlodipin e 5 mg tablet 2017 active Medicati on ID: [id number] D uration Value: 30 Brand Name: amlodipi ne Send Method: E-Prescr ibed Sub s Allowed: subs OK Medic ationGen ericName : amlodipi ne Not Available Not Available Not Available amlodipin e 10 mg tablet TAKE 1 TABLET BY MOUTH EVERY DAY active Not Available Not Available No t Available prednison e 50 mg tablet 02/12 completed Medicati on ID: [id number] B rand Name: predniso ne Send Method: [...] nasal spray 2019 active Medicati on ID: [id number] D uration Value: 30 Prescri bed By [...] nasal spray 09/25 completed Medicati on ID: [id number] D uration Value: 25 Brand Name: ipratrop ium bromide Send Method: E-Prescr ibed Sub s Allowed: subs OK Medic ationGen ericName : ipratrop ium bromide Not Available Not Available Not Available loratadin e 10 mg tablet 02/12 completed Medicati on ID: [id number] B rand Name: loratadi ne Send Method: [...] as needed 04/11 completed Medicati on ID: [id number] Du ration Value: 1 Prescri bed By Name: Juventino Paul nd Name: EpiPen 2-Fernandez Se nd Method: E-Prescr ibed Sub s Allowed: subs OK Medic ationGen ericName : EpiPen 2-Fernandez Not Available Not Available Not Available Flonase Allergy Relief 50 mcg/actua tion nasal spray,joe pension 2 spray into both nostrils 2018 active Medicati on ID: [id number] D uration Value: 30 Prescri bed By [...] Diagnosis Note 7700 MEAGHAN CHILDERS MD [facility] [address] [place] [address] 09/21/2023 13:33:31 09/21/2023 13:49:21 Obstructive sleep apnea syndrome 74342375 G47.33 Health Concerns Section Related Observation LastModified by Organization Detai ls LastModified Time None Recorded Concern Status LastModified by Organization Details LastModified Time None Recorded Advance Directives Directive None Recorded Payers Encounter Date Sequence Insurance Name Policy Number Policy M[employer]od Covered Member ID M[employer]od Member ID Guarantor Name 09/21/2023 1 [facility] [place] [id number] Kyle Campbell [id number] Kyle Campbell Notes Date Note Type Note Provider Name and Address Organization Details Recorded Time 09/21/2023 text/html 43-year-old male evaluated via telehealth today. He has a CPAP machine that needs to be updated. He uses his CPAP every day and finds it is extremely beneficial. MEAGHAN HAYS MD [address] [address], [place], [address], [facility] - [facility] 09/21/2023 14:52:28
--- OUTSIDE RECORDS SUMMARY | 2024-04-11 11:47 | XMS_ITS | Data Portability ---
Author Organization [facility] [id number] Address [address] [place] [address] Assessment No assessment recorded. Plan of Treatment Reminders Order Date Submit Date Provider Last Modified By Organization Details Last Modified Time Details Appointments None recorded. Lab None recorded. Referral emergency medicine referral 2021 [facility], [address] [place], [address], 13:25:18 Procedures None recorded. Surgeries None recorded. Imaging None recorded. Medication Orders ceftriaxon e 1 gram solution for injection 2021 Not available 12:13:28 cephalexin 500 mg capsule 2021 [facility]/Pharmacy #[id number], [address] [place] [address], [address], 10:52:38 clindamyci n HCl 300 mg capsule 2021 [facility]/Pharmacy #[id number], [address] [place] [address], [address], 10:52:39 Patient TargetsNo targets recorded. Patient Instructions Encounter Date Encounter Id Patient Instructions Last Modified By Organization Details Last Modified Time 03/01/2022 [id number] cellulitis: care instructions [email or web address] Not available 03/01/2022 10:52:36 03/03/2022 [id number] cellulitis: care instructions Not available 03/03/2022 12:35:22 Due to significant left hand swelling and pain despite taking antibiotic, I recommend further evaluation at the ER. Not available 03/03/2022 12:49:19 Patient is stabl e and will go by private vehicle. Declined transport by ambulance. Discussed elevated blood pressure, will be further evaluated at the ER. Discharged in stable condition. Not available 03/03/2022 12:56:21 Reason for Referral Emergency Medicine Referral for Cellulitis of left hand Further evaluation of +left hand cellulitis Referring Physician: Kriss Almaguer, Urgent Care, Encounter Date: 03/03/2022 Problems Name Problem SNOMED Code Status Onset Date Resolution Date Notes Provider Name and Address Organization Details Recorded Time Hypertensive disorder 88105415 Completed 202103/01/2022 Yvette eason PA - [facility] 11:49:42 Hypertensive disorder 92732826 Active 2021 Yvette eason PA - [facility] 11:49:42 Problem Notes None recorded. Procedures Surgical History Date Name Laterality Status Provider Name and Address Organization Details Recorded Time extraction of wisdom tooth completed Yvette Lux PA - [facility] 03/03/2022 11:51:04 Imaging Results None recorded. Procedure Notes None recorded. Medical Equipment None Reported. Medications Name Sig Start Date Stop Date Status Note LastModified by Organization Details LastModified Time clindamycin HCl 300 mg capsule Take 1 capsule every 6 hours by oral route for 10 days. 2021 active Not Available Not Available Not Avai lable ceftriaxone 1 gram solution for injection Take 1 g every day by injection route for 1 day. 2021 active Not Available Not Available Not Avai lable cephalexin 500 mg capsule Take 1 capsule every 6 hours by oral route for 10 days. 2021 active Not Available Not Available Not Avai lable amlodipine active Not Available Not Av ailable Not Available Vitals Date Recorded Body height Provider Name an d Address Organization Details Last Updated DateTime 03/01/2022 185.42 cm TANIA [facility] 1 05/02/2021 10:07:39 Date Recorded Body mass index (BMI) Body weight Provider Name and Address Organization Details Last Updated DateTime 03/01/2022 9.9 kg/m2 98912.43 g TANIA BONESIO PA - [facility] 03/01/2022 10:07:41 Date Recorded Oxygen saturation Oxygen saturation in Arterial blood by Pulse oximetry Provider Name and Address Organization Details Last Updated DateTime 03/01/2022 99 % 99 % TANIA BONESFREDERIC PA - [facility] 03/01/2022 10:07:48 Date Recorded Heart rate Provider Name an d Address Organization Details Last Updated DateTime 03/01/2022 90 /min TANIA BONESFREDERIC PA - [facility] 1 05/02/2021 10:07:54 Date Recorded Body temperature Provider Name a nd Address Organization Details Last Updated DateTime 03/01/2022 98.8 [degF] TANIA BONESIO PA - [facility] 03/01/2022 10:07:57 Date Recorded Body height Provider Name an d Address Organization Details Last Updated DateTime 03/03/2022 185.42 cm Yvette Lux PA - [facility] 1 05/04/2021 11:45:19 Date Recorded Body mass index (BMI) Body weight Provider Name and Address Organization Details Last Updated DateTime 03/03/2022 36.3 kg/m2 581868.9 g Yvette Aguilartega PA - [facility] 03/03/2022 11:45:52 Date Recorded Pain severity - 0-10 verbal numeric rating [Score] - Reported Provider Name and Address Organization Details Last Updated DateTime 03/03/2022 6 Yvette Lux PA - [facility] 1 05/04/2021 11:46:31 Date Recorded Heart rate Provider Name an d Address Organization Details Last Updated DateTime 03/03/2022 85 /min Yvette Lxu PA - [facility] 1 05/04/2021 11:48:21 Date Recorded Respiratory rate Provider Name a nd Address Organization Details Last Updated DateTime 03/03/2022 18 /min Yvette Lux PA - [facility] 1 05/04/2021 11:48:24 Date Recorded Body temperature Provider Name a nd Address Organization Details Last Updated DateTime 03/03/2022 97.5 [degF] Yvette Lux PA - [facility] 03/03/2022 11:48:35 Date Recorded Oxygen saturation Oxygen saturation in Arterial blood by Pulse oximetry Provider Name and Address Organization Details Last Updated DateTime 03/03/2022 98 % 98 % Yvette Lux PA - [facility] 03/03/2022 11:48:39 Date Recorded Systolic blood pressure Diastolic blood pressure Provider Name and Address Organization Details Last Updated DateTime 03/01/2022 148 mm[Hg] 87 mm[Hg] TANIA VALDES PA - [facility] 03/01/2022 10:07:47 Date Recorded Systolic blood pressure Diastolic blood pressure Provider Name and Address Organization Details Last Updated DateTime 03/03/2022 153 mm[Hg] 99 mm[Hg] Yvette Lux PA - [facility] 03/03/2022 11:52:56 Date Recorded Systolic blood pressure Diastolic blood pressure Provider Name and Address Organization Details Last Updated DateTime 03/03/2022 148 mm[Hg] 98 mm[Hg] Yvette Lux PA - [facility] 03/03/2022 12:32:39 Social History Question Answer Notes LastModified by Organizat ion Details LastModified Time What Is Your Level Of Alcohol Consumption? Occasional Information not available 03/01/2022 Have You Had Direct Contact, Or Contact During Intimacy, With Monkeypox Rash, Scabs, Or Body Fluids From A Person With Monkeypox? No Information not available 03/01/2022 Do You Use Any Illicit Or Recreational Drugs? No Information not available 03/01/2022 Have You Recently Traveled Abroad? No Information not available 03/01/2022 Do You Or Have You Ever Used Any Other Forms Of Tobacco Or Nicotine? No Information not available 03/01/2022 Sex: Unknown Functional Status None recorded. Mental Status None recorded. Family History Relationship Description Onset Age of this Age Resolved Age Notes LastModified by Organization Details LastModified Time Father Myocardial infarction [email or web address] Not available 02/10 11:50:29 Medical History No medical history recorded. Immunizations Vaccine Type Date Status Note Provider Nam e and Address Organization Details Recorded Time COVID-19, mRNA, LNP-S, PF, 30 mcg/0.3 mL dose 03/17/2021 completed TANIA eason PA - [facility] 03/01/2022 10:08:02 COVID-19, mRNA, LNP-S, PF, 30 mcg/0.3 mL dose 06/17/2020 completed TANIA BONESIO null, PA - [facility] 03/01/2022 10:08:02 COVID-19, mRNA, LNP-S, PF, 30 mcg/0.3 mL dose 07/08/2020 completed TANIA BONESIO null, PA - [facility] 03/01/2022 10:08:02 Past Encounters Encounter ID Performer Location Encounter Start Date Encounter Closed Date Diagnosis/Indication Diagnosis SNOMED-CT Code Diagnosis ICD10 Code Diagnosis Note [id number] [address] [place] [id number] 02/11/2018 09:03:54 02/11/2018 09:48:02 [id number] [address] [place] [address] [id number] 7 11/18/2019 11:52:58 11/18/2019 13:13:01 [id number] [address] [place] [address] [id number] 7 11/09/2016 16:33:00 11/09/2016 17:14:51 [id number] [address] [place] [address] [id number] 7 12/28/2016 12:10:18 12/28/2016 13:23:45 [id number] [address] [place] [address] [id number] 7 08/29/2019 08:43:17 08/29/2019 10:15:40 [id number] [address] [place] [address] [id number] 7 11/29/2018 08:35:26 11/29/2018 09:57:56 [id number] [address] [place] [address] [id number] 7 10/11/2020 12:23:22 10/11/2020 14:48:28 [id number] [address] [place] [address] [id number] 7 09/02/2019 12:04:55 09/02/2019 13:11:48 [id number] [address] [place] [address] 32089-662 7 09/09/2019 08:16:40 09/09/2019 08:35:30 [id number] [address] [place] [address] [id number] 7 04/23/2018 15:14:55 04/23/2018 15:45:24 [id number] [address] [place] [address] 72281-909 7 02/09/2018 09:09:18 02/09/2018 09:54:57 [id number] [address] [place] [address] [id number] 7 10/14/2020 08:43:52 10/14/2020 11:49:33 [id number] [address] [place] [address] 07278-245 7 12/04/2017 08:25:52 12/04/2017 09:28:24 [id number] [address] [place] [address] [id number] 7 11/01/2020 08:04:15 11/01/2020 08:55:18 [id number] [address] [place] [id number] 7 10/31/2019 08:14:53 10/31/2019 09:01:45 [id number] [address] [place] [address] [id number] 7 08/25/2015 13:30:17 08/25/2015 15:09:51 [id number] [address] [place] [address] [id number] 7 04/23/2020 08:56:36 04/23/2020 10:54:40 [id number] N[place] gomez [place] [address] [place] [address] [id number] 7 03/01/2022 08:48:07 03/01/2022 11:29:42 Cellulitis of left hand [id number] L03.114 You should follow-up with your PCP or here in 2days, or at any time if your condition does not improve or worsens. Any acute change should prompt a visit to the nearest Emergency Department .Increase oral fluids, rest while you are ill, ER if needed for worsening symptomsFo llow up here in 48 hours to evaluate response to treatment [id number] [place]uer [place] [address] [id number] 03/03/2022 08:54:39 03/03/2022 12:34:01 Cellulitis of left hand 2726247774 [id number] L03.114 Health Concerns Section Related Observation LastModified by Organization Detai ls LastModified Time None Recorded Concern Status LastModified by Organization Details LastModified Time None Recorded Advance Directives Directive None Recorded Payers Encounter Date Sequence Insurance Name Policy Number Policy Mcleod Covered Member ID Mcleod Member ID Guarantor Name 03/01/2022 1 [facility] [id number] Jesusmanda Marita Campbell [id number] Kyle Campbell 03/03/2022 1 [facility] [id number] Edmanda Kirkland Campbell [id number] Kyle Campbell Notes Date Note Type Note Provider Name and Address Organization Details Recorded Time 03/01/2022 text/html Skin Redness UCReported bypatient.Quality: painful;erythemato us;warm Severity:moderate; worsening Duration:2 days Onset:gradual onset Symptoms:no fever; no nausea; no vomiting;swelling Niki Morales MD [address] [place] [address] [place], [address], PA - [facility] 03/01/2022 11:11:09 03/03/2022 text/html Skin Redness UCReported bypatient.Location :left hand Quality:painful;er ythematous;warm Severity:moderate; worsening Duration:4 days Onset:gradual onset Symptoms:no nausea; no vomiting;swelling Pt here as follow up for left hand cellulitis. +swelling and tenderness x 4 days. Pt reports he works with his hands but no known injury or insect bite. +subjective fever one day prior that resolved. He was seen 2 days prior and started on clindamycin and keflex. Pt reports skin redness has mildy improved, but swelling seems to be worse. No streaking erythema or current fever. Kriss Almaguer MD [address] [place], [address], PA - [facility] 03/03/2022 13:24:57
== END 2024-04-11 11:46 | disposition home or self-care (01) ==
PROVIDERS: PCP Internal Medicine; Visit Provider Registered Nurse Emergency
DX: R20.2 Paresthesia of skin (principal); M54.16 Radiculopathy, lumbar region; M47.816 Spondylosis without myelopathy or radiculopathy, lumbar region
CPT/HCPCS: 99214; G2211

== ENCOUNTER → 2024-04-11 11:00 | Outpatient (BNVA) | payer OTHER, SELFPAY | PROVIDERS: PCP Internal Medicine; Visit Provider Registered Nurse Emergency | DX: R20.2 Paresthesia of skin (principal); M47.26 Other spondylosis with radiculopathy, lumbar region | CPT/HCPCS: 99212 ==

== ENCOUNTER 2024-05-15 06:19 | Outpatient (REF) | payer OTHER, SELFPAY ==
--- NOTE | ~2024-05-15 | FL_ITS ---
EXAMINATION: FL GUIDANCE ONLY HISTORY: M54.16 - Radiculopathy, lumbar region COMPARISON: None available. TECHNIQUE: Fluoroscopy time: 0.2 minutes. Cumulative Dose: 11.6 mGy. DAP: 0.0761 mGym2 Images: 4. FINDINGS: Fluoroscopic spot films of the lumbar spine demonstrate needles and contrast material in the regions of bilateral facet joints. Is not possible to determine the exact level on the basis of the these images. FL/FL guidance in treatment room IMPRESSION: Fluoroscopy during procedure. Please see procedure report for additional information. Electronically signed by: Kelechi Santo MD 05/19/2024 10:58 AM EDT
--- OUTSIDE RECORDS SUMMARY | 2024-05-15 06:22 | XMS_ITS ---
Author Name [facility] Organization Unknown History of Medication Use Medication Directions Dispensed Refills Start Date End Date Stat amoxicillin-clavula louis (AUGMENTIN) 875-125 MG per tablet Take 1 tablet by mouth 2 (two) times a day. 05/04/2023 05/12/2023 active Problems Problem Status Onset Date Problem Type Date of Resoluti on Source Acute non-recurrent maxillary sinusitis active EncounterDiagnosisAct CCT Acute cough active EncounterDiagnosisAct CCT
--- OUTSIDE RECORDS SUMMARY | 2024-05-15 06:22 | XMS_ITS | Data Portability ---
Author Organization [place] - [facility], Allergy Address [address] [address] Care Team Providers Care Upstairs Maid Name Role Phone AVERY CLARK Primary Care Provider AVERY CLARK Referring Provider Assessment Encounter Date Assessment Date Assessment LastModified by Organization Details LastModified Time 09/21/2023 09/21/2023 43-year-old male evaluated via telehealth today. Patient is using and benefiting from his CPAP machine. Continue use and follow-up as needed. [email or web address] Not available 09/21/2023 13:35:22 Plan of Treatment [...] Details Recorded Time Disorder of nasal sinus 2442312 Active 2018 Unspecif ied disorder of nose and nasal sinuses; Note: Date Diagnose d: 9 4:44 PM (J34.9) Not Available [facility] 4 02:27:55 Disorder of the nose 12371690 Active 2018 Unspecif ied disorder of nose and nasal sinuses; Note: Date Diagnose d: 9 4:44 PM (J34.9) Not Available [facility] 4 02:27:55 Obstruct loretta sleep apnea syndrome 43540679 Active 2015 Obstruct loretta sleep apnea (adult) (pediatr ic); Note: Date Diagnose d: 6 3:47 PM (G47.33) Not Available [facility] 4 02:27:58 Deviated nasal septum 125407841 Active 2017 Deviated nasal septum; Note: Date Diagnose d: 02/22/20 14 10:04 AM (470) ; Start Date : 02/22/20 14 Devia thomas nasal septum; Note: Date Diagnose d: 02/27/20 18 3:44 PM (J34.2) Not Available [facility] 4 02:27:47 Hypertro phy of tonsils 55757986 Active 2015 Hypertro phy of tonsils; Note: Date Diagnose d: 05/18/2015 3:51 PM (J35.1) Not Available [facility] 4 02:27:44 Allergic rhinitis caused by pollen 31264541 Active 2015 Allergic rhinitis due to pollen; Note: Date Diagnose d: 05/18/2015 3:48 PM (J30.1) Not Available [facility] 4 02:28:06 Cellulit is of right upper limb [id number] 520860 Active 2020 Cellulit is of right upper limb; Note: Date Diagnose d: 1 8:48 AM (L03.113 ) Not Available [facility] 4 02:28:05 Chronic rhinitis 87361116 Active 2013 Rhinitis , chronic; Note: Date Diagnose d: 02/22/20 14 10:04 AM (472.0) Not Available [facility] 4 02:27:47 Snoring 78350184 Completed 201510/12/2023 Snoring; Note: Date Diagnose d: 05/18/2015 3:53 PM (R06.83) Not Available [facility] 4 02:27:41 Hypertro phy of nasal turbinat es 99309566 Active 2017 Hypertro phy of nasal turbinat es; Note: Date Diagnose d: 02/27/20 18 3:44 PM (J34.3) Not Available [facility] 4 02:27:57 Allergic rhinitis 13691135 Active 2014 Allergic Rhinitis ; Note: Date Diagnose d: 5 3:36 PM (477.9) ; Start Date : 06/06/19 15 Aller gic rhinitis : Due to other allergen ; Note: Date Diagnose d: 5 4:01 PM (477.8) ; Start Date : 03/27/19 15 Peren nial allergic rhinitis ; Note: Date Diagnose d: 5 10:14 AM (J30.89) [mapped from ICD9 code: 477.8] Not Available [facility] 4 02:28:05 Problem Notes None recorded. Procedures [...] Copy/An or Auth^Scr ipt Copy/An or Auth_201 [id number] Not Available Not Available Not Available cyclobenz aprine 10 mg tablet TAKE 1 TABLET ORALLY AT BEDTIME NEEDED FOR MUSCLE SPASM active Not Available Not Available No t Available doxycycli ne hyclate 100 mg capsule 02/12 completed Medicati on ID: [id number] B rand Name: doxycycl ine hyclate Send Method: E-Prescr ibed Sub s Allowed: subs OK Medic ationGen ericName : doxycycl ine hyclate Not Available Not Available Not Available benzonata te 200 mg capsule TAKE 1 CAPSULE BY MOUTH THREE TIMES A DAY NEEDED FOR COUGH active Not Available Not Available No t Available amlodipin e 5 mg tablet 2017 active Medicati on ID: [id number] D uration Value: 30 Brand Name: amlodipi ne Send Method: E-Prescr ibed Sub s Allowed: subs OK Medic ationGen ericName : amlodipi ne Not Available Not Available Not Available amlodipin e 10 mg tablet TAKE 1 TABLET BY MOUTH EVERY DAY active Not Available Not Available No t Available prednison e 50 mg tablet 02/12 completed Medicati on ID: [id number] B rand Name: predniso ne Send Method: [...] nasal spray 2019 active Medicati on ID: [id number] D uration Value: 30 Prescri bed By [...] nasal spray 09/25 completed Medicati on ID: [id number] D uration Value: 25 Brand Name: ipratrop ium bromide Send Method: E-Prescr ibed Sub s Allowed: subs OK Medic ationGen ericName : ipratrop ium bromide Not Available Not Available Not Available loratadin e 10 mg tablet 02/12 completed Medicati on ID: [id number] B rand Name: loratadi ne Send Method: [...] as needed 04/11 completed Medicati on ID: [id number] Du ration Value: 1 Prescri bed By Name: Juventino Paul nd Name: EpiPen 2-Fernandez Se nd Method: E-Prescr ibed Sub s Allowed: subs OK Medic ationGen ericName : EpiPen 2-Fernandez Not Available Not Available Not Available Flonase Allergy Relief 50 mcg/actua tion nasal spray,joe pension 2 spray into both nostrils 2018 active Medicati on ID: [id number] D uration Value: 30 Prescri bed By [...] Diagnosis Note 7700 MEAGHAN CHILDERS MD [facility] [address] [place] [address] 09/21/2023 13:33:31 09/21/2023 13:49:21 Obstructive sleep apnea syndrome 77974214 G47.33 Health Concerns Section Related Observation LastModified by Organization Detai ls LastModified Time None Recorded Concern Status LastModified by Organization Details LastModified Time None Recorded Advance Directives Directive None Recorded Payers Encounter Date Sequence Insurance Name Policy Number Policy Mcleod Covered Member ID Mcleod Member ID Guarantor Name 09/21/2023 1 [facility] [place] [id number] Kyle Campbell [id number] Kyle Campbell Notes Date Note Type Note Provider Name and Address Organization Details Recorded Time 09/21/2023 text/html 43-year-old male evaluated via telehealth today. He has a CPAP machine that needs to be updated. He uses his CPAP every day and finds it is extremely beneficial. MEAGHAN HAYS MD [address] [address], [place], [address], [facility] - [facility] 09/21/2023 14:52:28
--- OUTSIDE RECORDS SUMMARY | 2024-05-15 06:22 | XMS_ITS | Data Portability ---
Author Organization [facility], [address] Address [address] [place] [address] Assessment No assessment recorded. Plan of Treatment Reminders Order Date Submit Date Provider Last Modified By Organization Details Last Modified Time Details Appointments None recorded. Lab None recorded. Referral emergency medicine referral 2021 [facility], [address] [place], [address], 13:25:18 Procedures None recorded. Surgeries None recorded. Imaging None recorded. Medication Orders ceftriaxon e 1 gram solution for injection 2021 Not available 12:13:28 cephalexin 500 mg capsule 2021 [facility]arm[facility] #0859, [address] [place] [address], [address], 10:52:38 clindamyci n HCl 300 mg capsule 2021 [facility] #0859, [address] [place] [address], [address], 10:52:39 Patient TargetsNo targets recorded. Patient Instructions Encounter Date Encounter Id Patient Instructions Last Modified By Organization Details Last Modified Time 03/01/2022 [id number] cellulitis: care instructions [email or web address] 3 Not available 03/01/2022 10:52:36 03/03/2022 [id number] cellulitis: care instructions Not available 03/03/2022 12:35:22 [...] Address Organization Details Recorded Time Hypertensive disorder 88292318 Completed 202103/01/2022 Yvette eason PA - [facility] 2 11:49:42 Hypertensive disorder 10119276 Active 2021 Yvette eason PA - [facility] 2 11:49:42 Problem Notes None recorded. Procedures Surgical [...] Not Available Vitals Date Recorded Body height Body mass index (BMI) Body weight Oxygen saturation Oxygen saturation in Arterial blood by Pulse oximetry Heart rate Body temperature Systolic blood pressure Diastolic blood pressure Provider Name and Address Organization Details Last Updated DateTime 2 185.42 cm 9.9 kg/m2 06169.4 3 g 99 % 99 % 90 /min 98.8 [degF] 148 mm[Hg] 87 mm[Hg] TANIA BONESIO PA - [facility] 2 10:07:47 Date Recorded Body height Body mass index (BMI) Body weight Pain severity - 0-10 verbal numeric rating [Score] - Reported Heart rate Respiratory rate Body temperature Oxygen saturation Oxygen saturation in Arterial blood by Pulse oximetry Systolic blood pressure Diastolic blood pressure Systolic blood pressure Diastolic blood pressure Provider Name and Address Organization Details Last Updated DateTime 2 185.42 cm 36.3 kg/m2 978362. 9 g 6 85 /min 18 /min 97.5 [degF] 98 % 98 % 153 mm[Hg] 99 mm[Hg] 148 mm[Hg] 98 mm[Hg] Yvette Lux PA - [facility] 2 12:32:39 Social History Question Answer Notes LastModified [...] Organization Details LastModified Time Father Myocardial infarction [email or web address] Not available 02/10 11:50:29 Medical History No medical history recorded. Immunizations Vaccine Type Date Status Note Provider Nam e and Address Organization Details Recorded Time COVID-19, mRNA, LNP-S, PF, 30 mcg/0.3 mL dose 03/17/2021 completed TANIA SOMMERSIO null, PA - [facility] 03/01/2022 10:08:02 COVID-19, mRNA, LNP-S, PF, 30 mcg/0.3 mL dose 06/17/2020 completed TANIA BONESIO null, PA - [facility] 03/01/2022 10:08:02 COVID-19, mRNA, LNP-S, PF, 30 mcg/0.3 mL dose 07/08/2020 completed [facility] 03/01/2022 10:08:02 Past Encounters Encounter ID Performer Location Encounter Start Date Encounter Closed Date Diagnosis/Indication Diagnosis SNOMED-CT Code Diagnosis ICD10 Code Diagnosis Note [id number] [address] [place] [address] 86213-364 7 02/11/2018 09:03:54 02/11/2018 09:48:02 [id number] [address] [place] [address] 75360-222 7 11/18/2019 11:52:58 11/18/2019 13:13:01 [id number] [address] [place] [address] 87555-119 7 11/09/2016 16:33:00 11/09/2016 17:14:51 [id number] [address] [place] [address] 76275-387 7 12/28/2016 12:10:18 12/28/2016 13:23:45 [id number] [address] [place] [address] 92844-894 7 08/29/2019 08:43:17 08/29/2019 10:15:40 [id number] [address] [place] [address] 51128-271 7 11/29/2018 08:35:26 11/29/2018 09:57:56 [id number] [address] [place] [address] 09592-448 7 10/11/2020 12:23:22 10/11/2020 14:48:28 [id number] [address] [place] [address] 59594-431 7 09/02/2019 12:04:55 09/02/2019 13:11:48 [id number] [address] [place] [address] 29948-751 7 09/09/2019 08:16:40 09/09/2019 08:35:30 [id number] [address] [place] [address] 27061-775 7 04/23/2018 15:14:55 04/23/2018 15:45:24 [id number] [address] [place] [address] 07824-390 7 02/09/2018 09:09:18 02/09/2018 09:54:57 [id number] [address] [place] [address] 57998-229 7 10/14/2020 08:43:52 10/14/2020 11:49:33 [id number] [address] [place] [address] 14188-360 7 12/04/2017 08:25:52 12/04/2017 09:28:24 [id number] [address] [place] [address] 90153-083 7 11/01/2020 08:04:15 11/01/2020 08:55:18 [id number] [address] [place] [address] 57560-801 7 10/31/2019 08:14:53 10/31/2019 09:01:45 [id number] [address] [place] [address] 85401-913 7 08/25/2015 13:30:17 08/25/2015 15:09:51 [id number] [address] [place] [address] 51077-035 7 04/23/2020 08:56:36 04/23/2020 10:54:40 [id number] Niki gomez MD [address] [place] [address] 31340-790 7 03/01/2022 08:48:07 03/01/2022 11:29:42 Cellulitis of left hand 8810860847 [id number] L03.114 You should follow-up with your PCP or here in 2days, or at any time if your condition does not improve or worsens. Any acute change should prompt a visit to the nearest Emergency Department .Increase oral fluids, rest while you are ill, ER if needed for worsening symptomsFo llow up here in 48 hours to evaluate response to treatment [id number] [place]iss [place]maguer [place] [address] [address] 03/03/2022 08:54:39 03/03/2022 12:34:01 Cellulitis of left hand [id number] [id number] L03.114 Health Concerns Section Related Observation LastModified by Organization Detai ls LastModified Time None Recorded Concern Status LastModified by Organization Details LastModified Time None Recorded Advance Directives Directive None Recorded Payers Encounter Date Sequence Insurance Name Policy Number Policy Mcleod Covered Member ID Mcleod Member ID Guarantor Name 03/01/2022 1 [facility] [place] [id number] Kyle Kirkland Campbell [id number] 03/03/2022 1 [facility]: [facility] ([facility] [place] [id number] Edmanda Kirkland Campbell [id number] Campbell Notes Date Note Type Note Provider Name and Address Organization Details Recorded Time 03/01/2022 text/html Skin Redness UCReported bypatient.Quality: painful;erythemato us;warm Severity:moderate; worsening Duration:2 days Onset:gradual onset Symptoms:no fever; no nausea; no vomiting;swelling Niki Morales MD [address] [place], [address], PA - [facility] 03/01/2022 11:11:09 03/03/2022 [...] Kriss Almaguer MD [address] [place], [address], PA - [facility] 03/03/2022 13:24:57
--- OUTSIDE RECORDS SUMMARY | 2024-05-15 06:22 | XMS_ITS | Clinical Summary ---
Author Organization [facility] Address [address] [place] [address] Care Team Providers Care Food Scientist Name Role Phone Pcp, No Primary Care [...] age to complete this topic Care Teams Food Scientist Relationship Specialty Start Date End Date Pcp, No PCP - General General Medicine 04/10/23
== END 2024-05-15 06:20 | disposition home or self-care (01) ==
LOC: CF 06:19
PROVIDERS: Visit Provider Internal Medicine
DX: M54.16 Radiculopathy, lumbar region (principal)
CPT/HCPCS: 64483; J1100; J2003; Q9967

== ENCOUNTER 2024-05-15 11:05 | Outpatient (AMB) | payer OTHER, SELFPAY ==
[2024-05-15 11:37] VITALS: BP 156/83; PULSE 88; O2SAT 97
--- NOTE | 2024-05-15 11:37 | MHC.OFFVIS ---
Vital Signs 05/15/24 11:37 05/15/24 12:26 BP 156/83 H 147/91 H Blood Pressure Location Lt brachial Lt brachial Position Sitting Sitting Pulse 88 84 Pulse Source Pulse Oximeter Pulse Oximeter Pulse Oximetry (%) 97 96 Oxygen Delivery Method Room Air Room Air Comment Pre-Op Post-Op Intake Visit Reasons: Lul L4-L5 TFESI Allergies No Known Allergies Allergy (Verified 04/11/24 11:47) HPI HPI Lul L4-L5 TFESI: Details: Patient presents for scheduled procedure. Denies any recent cough, cold, infection, fever or other significant changes in medical history since last office visit. Physical Exam Vital Signs: Last Vital Signs Pulse 88 05/15/24 11:37 BP 156/83 H 05/15/24 11:37 Pulse Ox 97 05/15/24 11:37 Oxygen Delivery Method Room Air 05/15/24 11:37 Office Procedures Details: Transforaminal epidural steroid injection, Bilateral L4/5 After obtaining written consent, pre-procedure blood pressure and heart rate were stable and recorded in the nursing record. The patient was placed in the prone position on the fluoroscopy table. The lumbosacral area was prepped with chloraprep, allowed to dry and draped in sterile fashion. Using fluoroscopy, the skin overlying our target was anesthetized with 0.5% lidocaine. A 22 gauge 3.5 inch spinal needle was advanced to the safe triangle in the upper pole of the L4 foramen on each side. No paresthesias were elicited with needle placement and aspiration was negative for blood and CSF. Correct needle position was confirmed with approximately 1 ml contrast dye (Omnipaque 180 mg/ml) injected under real-time fluoroscopy. No evidence of vascular or intrathecal uptake was seen and there was both epidural and peripheral spread of the contrast agent. 10 mg dexamethasone plus 1 ml containing 0.5% lidocaine was slowly injected on each side. The needles were removed. The skin was cleansed and a sterile bandages were applied. The patient tolerated the procedure well and no complications were encountered. Following the procedure the patient's vital signs were stable. The patient was discharged home in good condition with post-procedural instructions. Time Out: Immediately prior to the procedure, the following was verbally confirmed that there is a signed consent form and that the correct patient, planned procedure, site and side are consistent with documentation and that necessary equipment and/or blood products are available prior to the start of the case. Complications: none EBL: <5 cc 62899 - Lumbar/Sacral (Bilateral) Procedure code (CPT) selection complete Assessment & Plan Assessment & Plan (1) Lumbar radiculopathy: Code(s): M54.16 - Radiculopathy, lumbar region Category: Medical Plan Patient is status post bilateral L4 TFESIs. Patient tolerated procedure well and was discharged home in stable condition with discharge instructions. All questions were answered. We will follow-up via telephone or in clinic to assess response to therapy. A follow-up appointment was made during today's visit. Orders: Orders FL guidance in treatment room Today M54.16 - Radiculopathy, lumbar region Coding Level of Care Code Procedure Only Diagnoses Lumbar radiculopathy M54.16 CPT Codes Transforaminal Epidural Steroid Inj - TESI 3: 15781 - Lumbar/Sacral ([id number])
[2024-05-15 12:26] VITALS: BP 147/91; PULSE 84; O2SAT 96
--- OUTSIDE RECORDS SUMMARY | 2024-05-15 13:32 | XMS_ITS | Clinical Summary ---
Author Organization [facility] Address [address] [place] [address] Care Team Providers Care Warehouse Analyst Name Role Phone Pcp, No Primary Care [...] age to complete this topic Care Teams Warehouse Analyst Relationship Specialty Start Date End Date Pcp, No PCP - General General Medicine 04/10/23
--- OUTSIDE RECORDS SUMMARY | 2024-05-15 13:32 | XMS_ITS | Data Portability ---
Author Organization [facility], [address] Address [address] [place] [address] Assessment No assessment recorded. Plan of Treatment Reminders Order Date Submit Date Provider Last Modified By Organization Details Last Modified Time Details Appointments None recorded. Lab None recorded. Referral emergency medicine referral 2021 [facility], [address] [place], [address], 13:25:18 Procedures None recorded. Surgeries None recorded. Imaging None recorded. Medication Orders ceftriaxon e 1 gram solution for injection 2021 Not available 12:13:28 cephalexin 500 mg capsule 2021 [facility]armacy #0859, [address] [place] [address], [address], 10:52:38 clindamyci n HCl 300 mg capsule 2021 [facility] #0859, [address] [place] [address], [address], 10:52:39 Patient TargetsNo targets recorded. Patient Instructions Encounter Date Encounter Id Patient Instructions Last Modified By Organization Details Last Modified Time 03/01/2022 [id number] cellulitis: care instructions [email or web address] 3 Not available 03/01/2022 10:52:36 03/03/2022 [id number] cellulitis: care instructions Not available 03/03/2022 12:35:22 [...] Address Organization Details Recorded Time Hypertensive disorder 70277969 Completed 202103/01/2022 Yvette eason PA - [facility] 2 11:49:42 Hypertensive disorder 02154951 Active 2021 Y[facility]ason PA - [facility] [...] Updated DateTime 2 185.42 cm 9.9 kg/m2 92083.4 3 g 99 % 99 % 90 [...] Updated DateTime 2 185.42 cm 36.3 kg/m2 056692. 9 g 6 85 /min 18 /min [...] Organization Details LastModified Time Father Myocardial infarction [email or web address] Not available 02/10 11:50:29 Medical History No [...] SNOMED-CT Code Diagnosis ICD10 Code Diagnosis Note [id number] [address] [place] [address] 91502-421 7 02/11/2018 09:03:54 02/11/2018 09:48:02 [id number] [address] [place] [address] 83894-891 7 11/18/2019 11:52:58 11/18/2019 13:13:01 [id number] [address] [place] [address] 20712-178 7 11/09/2016 16:33:00 11/09/2016 17:14:51 [id number] [address] [place] [address] 55773-614 7 12/28/2016 12:10:18 12/28/2016 13:23:45 [id number] [address] [place] [address] 11526-832 7 08/29/2019 08:43:17 08/29/2019 10:15:40 [id number] [address] [place] [address] 32283-284 7 11/29/2018 08:35:26 11/29/2018 09:57:56 [id number] [address] [place] [address] 77998-351 7 10/11/2020 12:23:22 10/11/2020 14:48:28 [id number] [address] [place] [address] 29798-139 7 09/02/2019 12:04:55 09/02/2019 13:11:48 [id number] [address] [place] [address] 97976-193 7 09/09/2019 08:16:40 09/09/2019 08:35:30 [id number] [address] [place] [address] 46840-399 7 04/23/2018 15:14:55 04/23/2018 15:45:24 [id number] [address] [place] [address] 96020-011 7 02/09/2018 09:09:18 02/09/2018 09:54:57 [id number] [address] [place] [address] [id number] 7 10/14/2020 08:43:52 10/14/2020 11:49:33 [id number] [address] [place] [address] 28174-963 7 12/04/2017 08:25:52 12/04/2017 09:28:24 [id number] [address] [place] [address] 11202-392 7 11/01/2020 08:04:15 11/01/2020 08:55:18 [id number] [address] [place] [address] 44673-945 7 10/31/2019 08:14:53 10/31/2019 09:01:45 [id number] [address] [place] [address] 14281-247 7 08/25/2015 13:30:17 08/25/2015 15:09:51 [id number] [address] [place] [address] 57462-395 7 04/23/2020 08:56:36 04/23/2020 10:54:40 [id number] Niki gomez MD [address] [place] [address] 01935-923 7 03/01/2022 08:48:07 03/01/2022 11:29:42 Cellulitis of left hand [id number] 1042584 L03.114 You should follow-up with your PCP or here in 2days, or at any time if your condition does not improve or worsens. Any acute change should prompt a visit to the nearest Emergency Department .Increase oral fluids, rest while you are ill, ER if needed for worsening symptomsFo llow up here in 48 hours to evaluate response to treatment [id number] [place]uer [place] [address] [address] 7 03/03/2022 08:54:39 03/03/2022 12:34:01 Cellulitis of left hand 0659202445 8730241 L03.114 Health Concerns Section Related Observation LastModified by Organization Detai ls LastModified Time None Recorded Concern Status LastModified by Organization Details LastModified Time None Recorded Advance Directives Directive None Recorded Payers Encounter Date Sequence Insurance Name Policy Number Policy Mcleod Covered Member ID Mcleod Member ID Guarantor Name 03/01/2022 1 [id number] [place] [id number] Kyle Kirkland Campbell [id number] 03/03/2022 1 [facility]: [facility] ([facility] [id number] Edmanda Kirkland Campbell [id number] Notes Date Note Type Note Provider Name and Address Organization Details Recorded Time 03/01/2022 text/html Skin Redness UCReported bypatient.Quality: painful;erythemato us;warm Severity:moderate; worsening Duration:2 days Onset:gradual onset Symptoms:no fever; no nausea; no vomiting;swelling Niki Morales MD [address] [place], [address], [place] - [facility] 03/01/2022 11:11:09 03/03/2022 [...] Kriss Almaguer MD [address] [place], [address], [place] - [facility] 03/03/2022 13:24:57
== END 2024-05-15 12:28 | disposition home or self-care (01) ==
LOC: HO.PMCPRC 11:05
PROVIDERS: PCP Internal Medicine; Visit Provider Internal Medicine
DX: M54.16 Radiculopathy, lumbar region (principal)
CPT/HCPCS: 64483

== ENCOUNTER 2024-06-12 08:37 | Outpatient (AMB) | payer OTHER, SELFPAY ==
[2024-06-12 08:38] VITALS: BP 169/93; PULSE 96; O2SAT 95; BMI 37.4
--- NOTE | 2024-06-12 08:38 | A.OFFVIS_ITS ---
Vital Signs 06/12/24 08:38 Height 6 ft 1 in Weight 283 lb 4 oz BMI 37.4 BP 169/93 H Blood Pressure Location Rt brachial Position Sitting Pulse 96 Pulse Source Pulse Oximeter Pulse Oximetry (%) 95 Oxygen Delivery Method Room Air Intake Visit Reasons: s/p deven L4-L5 TFESI Allergies No Known Allergies Allergy (Verified 06/12/24 08:38) HPI Comments Details: The patient is a 44-year-old male presenting with pain management follow-up related to lumbar radiculopathy and associated back pain. The patient's condition began approximately a year ago following a work-related injury. He underwent Bilateral L4 transforaminal epidural steroid injection one month ago, leading to significant relief of leg pain by about 90%, although his back pain remained unchanged. The leg pain was associated with radiating discomfort primarily in the left leg, and to a lesser extent in the right leg, which has shown marked improvement post-injection. The patient's back pain is aggravating, especially during certain activities such as leaning forward, sitting, or walking, although this is inconsistent. The patient has continues to work full duty without modification despite the pain. He has a history of hypertension managed with amlodipine, elevated uric acid levels, and past carpal tunnel syndrome, for which surgery was performed on his left hand. For pain management, he sometimes uses cyclobenzaprine and occasionally takes Tylenol and ibuprofen. Denies any recent cough, cold, infection, fever or any significant changes in medical history since last office visit. - Onset: Approximately one year ago after a work-related injury - Quality & Character: Persistent, multifactorial back pain; radiating leg pain significantly improved post-injection - Primary Location: Back - Radiation: Previously down the left leg, now improved post-injection - Exacerbating Factors: Leaning forward, sitting, walking - Relieving Factors: L4 transforaminal epidural steroid injection provided leg pain relief - Interference: Pain occurs inconsistently but can affect sitting, walking, and certain body positions - Affect: Patient maintains functionality at work; pain intermittently affects comfort - Analgesia: Current pain level at 2/10; uses cyclobenzaprine and occasional OTC analgesics; goal is further pain reduction - Adverse Effects: None reported from current medication regimen - Activities of Daily Living: Pain affects activities inconsistently; working full duty without restriction - Aberrant Drug Related Behaviors: None reported; medications are used as prescribed Past Procedures: 05/15/24: Bilateral L4 TFESI- leg pain 90% ongoing pain relief, back pain 0% pain relief PRIOR 04/11/24 Skyla LANDERS: Patient presents back to the office today for follow-up, review of recent EMG EMG reviewed, results as per below Continues with lower back pain with radiation down the left lower extremity to the foot. He reports intermittent radiation down the right lower extremity. Pain today is 1/10. He states some days pain is worse than others. He continues with Tylenol and Motrin as needed. He has muscle relaxers to take when the pain is severe. Denies red flag symptoms including new loss of bowel, bladder or saddle anesthesia Intake note: Kyle is a very pleasant 43-year-old male who presents to the office today for evaluation and management of his chronic lower back pain Patient has been suffering with this pain for 7 months, he was referred here by work connections. Recent MRI reviewed, results as per below Patient states this pain started 06/30/2023, after he was out doing a lot of work in the [employer] for his job. Endorses midline lower back pain with radiation down left leg to the foot. States when the pain 1st started it was very severe. Since then it has been more manageable. He also reports occasional radiation on the right into the upper buttocks but not down the leg. Pain is intermittent, worse with sitting, standing and if he is in pain walking will exacerbate it. Pain is also exacerbated by activities that require slight forward flexion He does endorse some numbness, tingling and weakness of the left lower extremity. Denies red flag symptoms including new loss of bowel, bladder or saddle anesthesia Pain today is rated as a 4/10 Completed physical therapy a couple months ago with minimal improvement Denies history of chiropractor, acupuncture, massage or previous attempts at injections Patient has been taking Tylenol and Motrin as needed with some improvement. In the past he has also tried muscle relaxers with some improvement. In terms of muscle damage condition is described as spasming, stabbing, sharp, shooting, dull, cramping, squeezing, throbbing, tingling, pins and needles Pain is negatively impacting patient's enjoyment of life, general activity, mood, sleep, walking Denies implantable devices, pacemaker or defibrillator Denies current use of anticoagulants Denies current use of nicotine, tobacco, alcohol or illicit substances [facility] Medical History HTN (hypertension) Surgical History S/P LASIK surgery of both eyes History of carpal tunnel release Review of Systems Const Details: - Musculoskeletal: Reports leg pain improvement, persistent back pain - Neurological: Denies severe changes post-injection, notes marked improvement in leg discomfort All systems reviewed & are unremarkable except as noted in HPI and below Physical Exam General: Appears afebrile. Alert and oriented. Mood and affect appropriate. Follows and participates in conversation appropriately. Respiratory effort is unlabored. No cough. Able to transition from sit to stand unassisted. Ambulates with bilaterally normal heel strike and toe off. Back/Spine/Pelvis Cervical Spine: cervical ROM normal, cervical muscular tenderness and No Cervical spine tenderness Thoracic/Lumbar Spine: thoracic and lumbar spine normal to inspection, No Thoracic/lumbar spine scar(s), Lasegue's sign negative, straight leg raise negative bilaterally, pain with thoraco-lumbar ROM, paraspinal muscle tenderness, No thoracic spinal tenderness and lumbar spinal tenderness at L4 and at L5 Pelvis: no buttock tenderness Sacroiliac joints: bilaterally nontender Results Reviewed Results Reviewed: 04/02/24 EMG IMPRESSION: 1. This is an abnormal study. 2. There is electrodiagnostic evidence for bilateral lumbar radiculopathy, mid- low, affecting L5 nerve roots. 3. There is no electrodiagnostic evidence for focal peroneal neuropathy, tibial neuropathy. lumbosacral plexopathy, or peripheral neuropathy. 12/25/23 MR/MR lumbar spine wo con FINDINGS: Last rib-bearing vertebra labeled T12. No bone marrow STIR signal abnormality. The alignment is normal. The conus medullaris ends at inferior endplate of L1 with normal signal. Spina bifida occulta, S1. Syndesmophyte formation both sacroiliac joints. T12-L1: No compression upon neural elements. L1-2: Based disc bulging. No compression upon neural elements. L2-3: Broad-based disc bulging. Facet joint hypertrophy as well as ligamentum flavum. Reduced AP diameter of the thecal sac and bilateral neuroforamina narrowing. L3-4: Broad-based disc bulging. Facet joint and ligamentum flavum hypertrophy, bilaterally. Reduced AP diameter of the thecal sac and bilateral neuroforamina narrowing. L4-5: Broad-based disc bulging. Facet joint and ligamentum flavum hypertrophy. Reduced AP diameter of the thecal sac. Bilateral neuroforamina narrowing. L5-S1: No based disc bulging. Facet joint hypertrophy. Reduced AP diameter of the thecal sac. Bilateral neuroforamina narrowing. No prevertebral compartment hematoma, mass or fluid collection. IMPRESSION: Multilevel spondylosis from L3-4, to L5-S1 likely encroaching the exiting nerve roots. Assessment & Plan Assessment & Plan (1) Lumbar radiculopathy: Code(s): M54.16 - Radiculopathy, lumbar region Category: Medical (2) Lumbar spondylosis: Code(s): M47.816 - Spondylosis without myelopathy or radiculopathy, lumbar region Category: Medical (3) Work related injury: Code(s): Y99.0 - Civilian activity done for income or pay Category: Medical (4) Chronic low back pain: Code(s): M54.50 - Low back pain, unspecified; G89.29 - Other chronic pain Category: Medical Plan The patient achieved significant bilateral leg pain relief following a bilateral L4 transforaminal epidural steroid injection one month ago. Continuation of pain management with current medications alongside proper ergonomics at work is recommended. Re-evaluation in 2-3 months is advised, considering further interventions if back pain persists. Use of OTC medications as needed for exacerbations is appropriate, with potential reevaluation for additional procedures if required. I discussed with the patient the discrepancies in pain relief post-injection, highlighting the multifactorial nature of his back pain. The benefits of the L4 transforaminal injection in alleviating leg pain were acknowledged, and I emphasized the need for continued conservative management and monitoring. Discussion included potential future interventions such as L5 transforaminal injections, neuromodulation and radiofrequency ablation, with an understanding that his body mechanics at work should be optimized to prevent exacerbation. We agreed on follow-up and reevaluation timelines based on his pain development. Continue with Cyclobenzaprine as needed. Side effects and precautions were reviewed with patient. Patient was informed and verbally consented to the use of an ambient scribe for clinic note documentation during this visit. Patient Instructions: - Continue using cyclobenzaprine as needed for muscle relaxation - Use Tylenol or ibuprofen occasionally for pain relief - Practice proper body mechanics at work, especially during lifting - Avoid activities that exacerbate pain - Follow up if pain worsens or fails to improve in two months - Schedule a follow up appointment with Skyla LANDERS if further intervention is necessary Coding Level of Care Code Est Pt Level 3 (37627) Complex EM visit Add On G2211 Diagnoses Lumbar radiculopathy M54.16 Lumbar spondylosis M47.816 Work related injury Y99.0 Chronic low back pain M54.50; G89.29
--- OUTSIDE RECORDS SUMMARY | 2024-06-12 08:47 | XMS_ITS | Clinical Summary ---
Author Organization [facility] Address [address] [place] [address] Care Team Providers Care Banquet Manager Name Role Phone Pcp, No Primary Care [...] age to complete this topic Care Teams Banquet Manager Relationship Specialty Start Date End Date Pcp, No PCP - General General Medicine 04/10/23
--- OUTSIDE RECORDS SUMMARY | 2024-06-12 08:47 | XMS_ITS | Data Portability ---
Author Organization [place] - [facility], Allergy Address [address] [address] Care Team Providers Care Bright Cutter Name Role Phone AVERY CLARK Primary Care Provider AVERY CLARK Referring Provider Assessment Encounter Date Assessment Date Assessment LastModified by Organization Details LastModified Time 09/21/2023 09/21/2023 43-year-old male evaluated via telehealth today. Patient is using and benefiting from his CPAP machine. Continue use and follow-up as needed. Not available 09/21/2023 13:35:22 Plan of Treatment [...] Details Recorded Time Disorder of nasal sinus 4351517 Active 2018 Unspecif ied disorder of nose and nasal sinuses; Note: Date Diagnose d: 9 4:44 PM (J34.9) Not Available [facility] 4 02:27:55 Disorder of the nose 59722092 Active 2018 Unspecif ied disorder of nose and nasal sinuses; Note: Date Diagnose d: 9 4:44 PM (J34.9) [facility] 4 02:27:55 Obstruct loretta sleep apnea syndrome 42949678 Active 2015 Obstruct loretta sleep apnea (adult) (pediatr ic); Note: Date Diagnose d: 6 3:47 PM (G47.33) Not Available [facility] 4 02:27:58 Deviated nasal septum 794760866 Active 2017 Deviated nasal septum; Note: Date Diagnose d: 02/22/20 14 10:04 AM (470) ; Start Date : 02/22/20 14 Devia thomas nasal septum; Note: Date Diagnose d: 02/27/20 18 3:44 PM (J34.2) Not Available [facility] 4 02:27:47 Hypertro phy of tonsils 25490248 Active 2015 Hypertro phy of tonsils; Note: Date Diagnose d: 05/18/2015 3:51 PM (J35.1) Not Available [facility] 4 02:27:44 Allergic rhinitis caused by pollen 57433233 Active 2015 Allergic rhinitis due to pollen; Note: Date Diagnose d: 05/18/2015 3:48 PM (J30.1) Not Available [facility] 4 02:28:06 Cellulit is of right upper limb [id number] 853392 Active 2020 Cellulit is of right upper limb; Note: Date Diagnose d: 1 8:48 AM (L03.113 ) Not Available [facility] 4 02:28:05 Chronic rhinitis 16455227 Active 2013 Rhinitis , chronic; Note: Date Diagnose d: 02/22/20 14 10:04 AM (472.0) Not Available [facility] 4 02:27:47 Snoring 99929930 Completed 201510/12/2023 Snoring; Note: Date Diagnose d: 05/18/2015 3:53 PM (R06.83) Not Available [facility] 4 02:27:41 Hypertro phy of nasal turbinat es 34230551 Active 2017 Hypertro phy of nasal turbinat es; Note: Date Diagnose d: 02/27/20 18 3:44 PM (J34.3) Not Available [facility] 4 02:27:57 Allergic rhinitis 40033222 Active 2014 Allergic Rhinitis ; Note: Date Diagnose d: 5 3:36 PM (477.9) ; Start Date : 06/06/19 15 Aller gic rhinitis : Due to other allergen ; Note: Date Diagnose d: 5 4:01 PM (477.8) ; Start Date : 03/27/19 15 Peren nial allergic rhinitis ; Note: Date Diagnose d: 5 10:14 AM (J30.89) [mapped from ICD9 code: 477.8] Not Available [facility] 4 02:28:05 Problem Notes None recorded. [...] Copy/An or Auth^Scr ipt Copy/An or Auth_201 [id number] Not Available Not Available Not Available cyclobenz aprine 10 mg tablet TAKE 1 TABLET ORALLY AT BEDTIME NEEDED FOR MUSCLE SPASM active Not Available Not Available No t Available doxycycli ne hyclate 100 mg capsule 02/12 completed Medicati on ID: [id number] B rand Name: doxycycl ine hyclate Send Method: E-Prescr ibed Sub s Allowed: subs OK Medic ationGen ericName : doxycycl ine hyclate Not Available Not Available Not Available benzonata te 200 mg capsule TAKE 1 CAPSULE BY MOUTH THREE TIMES A DAY NEEDED FOR COUGH active Not Available Not Available No t Available amlodipin e 5 mg tablet 2017 active Medicati on ID: [id number] D uration Value: 30 Brand Name: amlodipi ne Send Method: E-Prescr ibed Sub s Allowed: subs OK Medic ationGen ericName : amlodipi ne Not Available Not Available Not Available amlodipin e 10 mg tablet TAKE 1 TABLET BY MOUTH EVERY DAY active Not Available Not Available No t Available prednison e 50 mg tablet 02/12 completed Medicati on ID: [id number] B rand Name: predniso ne Send Method: [...] nasal spray 2019 active Medicati on ID: [id number] D uration Value: 30 Prescri bed By [...] nasal spray 09/25 completed Medicati on ID: [id number] D uration Value: 25 Brand Name: ipratrop ium bromide Send Method: E-Prescr ibed Sub s Allowed: subs OK Medic ationGen ericName : ipratrop ium bromide Not Available Not Available Not Available loratadin e 10 mg tablet 02/12 completed Medicati on ID: [id number] B rand Name: loratadi ne Send Method: [...] as needed 04/11 completed Medicati on ID: [id number] Du ration Value: 1 Prescri bed By Name: Juventino Paul nd Name: EpiPen 2-Fernandez Se nd Method: E-Prescr ibed Sub s Allowed: subs OK Medic ationGen ericName : EpiPen 2-Fernandez Not Available Not Available Not Available Flonase Allergy Relief 50 mcg/actua tion nasal spray,joe pension 2 spray into both nostrils 2018 active Medicati on ID: [id number] D uration Value: 30 Prescri bed By [...] Diagnosis Note 7700 MEAGHAN CHILDERS MD [facility] [address] [place] [address] 09/21/2023 13:33:31 09/21/2023 13:49:21 Obstructive sleep apnea syndrome 52888576 G47.33 Health Concerns Section Related Observation LastModified by Organization Detai ls LastModified Time None Recorded Concern Status LastModified by Organization Details LastModified Time None Recorded Advance Directives Directive None Recorded Payers Encounter Date Sequence Insurance Name Policy Number Policy Mcleod Covered Member ID Mcleod Member ID Guarantor Name 09/21/2023 1 [facility] [id number] Kyle Campbell [id number] Kyle Campbell Notes Date Note Type Note Provider Name and Address Organization Details Recorded Time 09/21/2023 text/html 43-year-old male evaluated via telehealth today. He has a CPAP machine that needs to be updated. He uses his CPAP every day and finds it is extremely beneficial. MEAGHAN HAYS MD [address] [address], [place], [address], [facility] - [facility] 09/21/2023 14:52:28
--- OUTSIDE RECORDS SUMMARY | 2024-06-12 08:47 | XMS_ITS | Data Portability ---
Author Organization [facility], [address] Address [address] [place] [address] Assessment No assessment recorded. Plan of Treatment Reminders Order Date Submit Date Provider Last Modified By Organization Details Last Modified Time Details Appointments None recorded. Lab None recorded. Referral emergency medicine referral 2021 [facility], [address] [place], [address], 13:25:18 Procedures None recorded. Surgeries None recorded. Imaging None recorded. Medication Orders ceftriaxon e 1 gram solution for injection 2021 Not available 12:13:28 cephalexin [address] [facility][id number], [address] [place] [address], [id number], 10:52:38 clindamyci n HCl [address] [id number], [address] [place] [address], [address], 10:52:39 Patient TargetsNo targets recorded. Patient Instructions Encounter Date Encounter Id Patient Instructions Last Modified By Organization Details Last Modified Time 03/01/2022 [id number] cellulitis: care instructions [email or web address] Not available 03/01/2022 10:52:36 03/03/2022 [id number] cellulitis: care instructions Not available 03/03/2022 12:35:22 [...] Address Organization Details Recorded Time Hypertensive disorder 14756224 Completed 202103/01/2022 Yvette eason PA - [facility] 2 11:49:42 Hypertensive disorder 08355355 Active 2021 [facility] [...] Updated DateTime 2 185.42 cm 9.9 kg/m2 24432.4 3 g 99 % 99 % 90 [...] Updated DateTime 2 185.42 cm 36.3 kg/m2 197075. 9 g 6 85 /min 18 /min [...] Organization Details LastModified Time Father Myocardial infarction [email or web address] Not available 02/10 11:50:29 Medical History No [...] SNOMED-CT Code Diagnosis ICD10 Code Diagnosis Note [id number] [address] [place] [address] 02/11/2018 09:03:54 02/11/2018 09:48:02 [id number] [address] [place] [address] 11/18/2019 11:52:58 11/18/2019 13:13:01 [id number] [address] [place] [phone] 7 11/09/2016 16:33:00 11/09/2016 17:14:51 [id number] [address] [place] [address] 7 12/28/2016 12:10:18 12/28/2016 13:23:45 [id number] [address] [place] [phone] 7 08/29/2019 08:43:17 08/29/2019 10:15:40 [id number] [address] [place] [address] 7 11/29/2018 08:35:26 11/29/2018 09:57:56 [id number] [address] [place] [address] 7 10/11/2020 12:23:22 10/11/2020 14:48:28 [id number] [address] [place] [address] 7 09/02/2019 12:04:55 09/02/2019 13:11:48 [id number] [address] [place] [address]838 7 09/09/2019 08:16:40 09/09/2019 08:35:30 [id number] [address] [place] [address]64[address] 7 04/23/2018 15:14:55 04/23/2018 15:45:24 [id number] [address] [place] [address] 7 02/09/2018 09:09:18 02/09/2018 09:54:57 [id number] [address] [place] [address]862[address] 7 10/14/2020 08:43:52 10/14/2020 11:49:33 [id number] [address] [place] [address]97[address] 7 12/04/2017 08:25:52 12/04/2017 09:28:24 [id number] [address] [place] [address] 7 11/01/2020 08:04:15 11/01/2020 08:55:18 [id number] [address] [place] [address] 7 10/31/2019 08:14:53 10/31/2019 09:01:45 [id number] [address] [place] [id number] 7 08/25/2015 13:30:17 08/25/2015 15:09:51 [id number] [address] [place] [phone] 7 04/23/2020 08:56:36 04/23/2020 10:54:40 [id number] Niki gomez MD [address] [place] [id number] 03/01/2022 08:48:07 03/01/2022 11:29:42 Cellulitis of left hand [id number] L03.114 You should follow-up with your PCP or here in 2days, or at any time if your condition does not improve or worsens. Any acute change should prompt a visit to the nearest Emergency Department .Increase oral fluids, rest while you are ill, ER if needed for worsening symptomsFo llow up here in 48 hours to evaluate response to treatment [id number] Kriss Almaguer MD [address] [address] 03/03/2022 08:54:39 03/03/2022 12:34:01 Cellulitis of left hand [id number] 6202153 L03.114 Health Concerns Section Related Observation LastModified by Organization Detai ls LastModified Time None Recorded Concern Status LastModified by Organization Details LastModified Time None Recorded Advance Directives Directive None Recorded Payers Encounter Date Sequence Insurance Name Policy Number Policy Mcleod Covered Member ID Mcleod Member ID Guarantor Name 03/01/2022 1 [facility] [id number] Kyle Kirkland Campbell [id number] Kyle Vupatrick 03/03/2022 1 [facility]: [facility] [id number] Edmanda Kirkland Campbell [id number] Kyle Campbell Notes Date Note Type Note Provider Name and Address Organization Details Recorded Time 03/01/2022 text/html Skin Redness UCReported bypatient.Quality: painful;erythemato us;warm Severity:moderate; worsening Duration:2 days Onset:gradual onset Symptoms:no fever; no nausea; no vomiting;swelling Niki Morales MD [address] [place], [address], [place] - [facility] 03/01/2022 11:11:09 03/03/2022 [...] Kriss Almaguer MD [address] [place], [address], [place] - [facility] 03/03/2022 13:24:57
== END 2024-06-12 08:54 | disposition home or self-care (01) ==
LOC: HO.PMC 08:38
PROVIDERS: PCP Internal Medicine; Visit Provider Nurse Practitioner Family
DX: M54.16 Radiculopathy, lumbar region (principal); M47.816 Spondylosis without myelopathy or radiculopathy, lumbar region; Y99.0 Civilian activity done for income or pay; M54.50 Low back pain, unspecified; G89.29 Other chronic pain
CPT/HCPCS: 99213; G2211

== ENCOUNTER → 2024-06-12 08:37 | Outpatient (BNVA) | payer OTHER, SELFPAY | PROVIDERS: PCP Internal Medicine; Visit Provider Nurse Practitioner Family | DX: M54.16 Radiculopathy, lumbar region (principal); M47.816 Spondylosis without myelopathy or radiculopathy, lumbar region; M54.50 Low back pain, unspecified; G89.29 Other chronic pain; Y99.0 Civilian activity done for income or pay | CPT/HCPCS: 99212 ==